=== PATIENT | male | born 1960 | race Caucasian/White ===

== ENCOUNTER 2024-06-19 15:10 | Inpatient (IN) | payer OTHER, SELFPAY ==
[2024-06-19] VITALS (9 sets, daily range): BP systolic 145–175; BP diastolic 82–121; BMI 32.3
--- NOTE | 2024-06-19 10:18 | ED.GENMED ---
ED Provider Triage
<Leno Del Angel PA-C - Last Filed: 06/19/24 10:19>
-
Patient seen by provider in Triage?: Seen in Triage
64-year-old male with mid and left-sided abdominal pain associated with nausea vomiting and diarrhea. He has a temperature of 100.6 on triage. The pain on the left side is constant. He also notes a darker colored urine.
No acute distress upon triage other than fever. Tylenol ordered for fever. Will check labs urine and order CT with IV contrast.
This was a medical screening. Patient would benefit from further evaluation
History of Present Illness
<Leno Del Angel PA-C - Last Filed: 06/19/24 10:19>
General
Chief Complaint: Abdominal Pain
Time Seen by Provider: 06/19/24 12:08
<Adeline León PA-C - Last Filed: 06/19/24 21:42>
General
Source: patient
Exam Limitations: none
Nursing documentation reviewed up to this point in time: agreed with
History of Present Illness
History of Present Illness:
64-year-old male with a past medical history of GERD, hypertension, cirrhosis, pancreatitis presents to the emergency department today with concerns of left lower quadrant abdominal pain, as well as diarrhea starting last night. Patient reports
that he woke up in the pain in the middle of the night. Patient states he has never had pain like this before. Patient denies radiation of the pain. He states that it comes and goes and describes as a stat stabbing sensation in the left side of
his abdomen. He is also had diarrhea every time he is use bathroom. Patient denies any blood in his stools, any rectal bleeding, any lightheadedness, any dizziness. Patient denies any recent antibiotic use, any recent travel outside the country.
Patient denies any history of intra-abdominal surgeries. Patient denies any nausea or vomiting. States that he developed a fever today. He denies chest pain but does note some mild associated shortness of breath as well as coughing. He also
complains of episode of burning with urination and dark-colored urine. He denies any pelvic pain or penile discharge.
Past History
<Leno Del Angel PA-C - Last Filed: 06/19/24 10:19>
Past History
ED Past Medical History: Arrthythmia, GERD, HTN, Psychiatric (alcoholism and depression, substance abuse), Other (Pancreatitis) and Other (peripheral neuropathy, BPH)
ED Past Surgical History: None
Social History
Tobacco: Former smoker ( him)
Alcohol: Former
Drug: Marijuana and Cocaine
Personal: Single
Living: with roommate
Employment: Not employed
Family History
Family History: Other (Noncontributory)
Review of Systems
<Adeline León PA-C - Last Filed: 06/19/24 21:42>
Review of Systems
All Other Systems: ROS reviewed and negative except as documented in HPI and ROS
Phy Exam
<GENARO Lozano Last Filed: 06/19/24 21:42>
Physical Exam
Physical Exam:
General: Patient is well appearing and in no acute distress; non-toxic
Skin: Warm and dry, no rashes or lesions
Head: Normocephalic, atraumatic
Eyes: Sclera non-icteric. EOMs intact.
Cardiac: Regular rate and rhythm, no murmurs
Peripheral Vascular: No lower extremity swelling or edema
Pulm: Normal respiratory effort, no wheezes, rales, rhonchi
Abdomen: Left-sided abdominal tenderness noted to palpation, no palpable abdominal masses
Neuro: CN II-XII intact, no focal neurologic deficits.
Psychiatric: Appropriate mood and affect.
Course
<Leno Del Angel PA-C - Last Filed: 06/19/24 10:19>
Orders/Labs/Results
Orders:
Orders
06/19/24 Breakfast
Clear Liquid
At Your Request: Full Participation
06/19/24 10:17
CT Abd/pelvis W Iv Cont Urgent
Comment:
Reason For Exam: abdominal pain, vomiting, diarrhea
Acetaminophen [Tylenol] 1,000 mg PO NOW STA
06/19/24 10:23
Complete Blood Count/With Diff Urgent
Comprehensive Metabolic Panel Urgent
Lipase Urgent
06/19/24 12:20
0.9% Sodium Chloride 1000 ml [Nss] 1,000 ml IV BOLUS
Morphine Sulfate 2 mg IV NOW STA
06/19/24 12:41
CR Chest - 2 Views Urgent
Comment:
Reason For Exam: coughing, shortness of breath
06/19/24 12:45
Urinalysis Reflex To Culture Urgent
Date Specimen was Collected: 06/19/24
Time Specimen was Collected: 10:20
Urine Microscopic Reflex Cult Urgent
Urine Culture Urgent
JOHN Source: U
Specimen Description:
Date Specimen was Collected: 06/19/24
Time Specimen was Collected: 10:20
06/19/24 13:24
Ketorolac [Toradol] 15 mg IV NOW STA
06/19/24 13:32
CefTRIAXone [Rocephin] 1,000 mg IV NOW STA
Morphine Sulfate 2 mg IV NOW STA
06/19/24 14:33
Admit/Transfer Patient As Directed
Co-Sign Provider:
Level of Care: Inpatient admission
Assign to:: Telemetry
Physician / Group: Toribio
Diagnosis: Sepsis, UTI
Reason for Telemetry: Arrhythmia
Date to Stop Telemetry: 06/22/24
Time to Stop Telemetry: 11:00
Reason for Hospitalization: IV abx
Expected length of stay greater than two midnights?: Yes
ELOS- Estimated Length of Stay in days: 3
I certify the patient meets the requirements for IP care: Yes
PRN Pain Medication Management As Directed
May give lesser potent ordered pain med per pt: Yes
preference::
Protocol:: Medication orders for pain may be administered in a
manner that supports deferring to patient preference
when the pt is:
- Requesting an ordered lesser potent pain medication.
Least to most potent pain medications are defined
as: acetaminophen < NSAID < tramadol < opioids
(morphine, oxycodone, hydromorphone).
- Requesting a lesser dose of the same medication IF
ORDERED.
- Requesting a less intrusive route of administration
if both routes are prescribed by the provider (PO <
IV).
06/19/24 14:37
Code Status As Directed
Resuscitation Status: Full Code
06/19/24 14:39
Blood Culture Urgent
JOHN Source: Blood/Venous
Specimen Description:
06/19/24 15:04
Norovirus by PCR Urgent
JOHN Source: Feces/Stool
Specimen Description:
Date Specimen was Collected: 06/19/24
Time Specimen was Collected: 20:14
06/19/24 15:15
0.9% Sodium Chloride 1000 ml [Nss] 1,000 ml IV 100 mls/hr
06/19/24 15:51
Blood Culture Urgent
JOHN Source: Blood/Venous
Specimen Description:
06/19/24 18:16
Acetaminophen [Tylenol] 650 mg PO Q4HPRN PRN
Enoxaparin Sodium [Lovenox] 40 mg SC QPM
HydrALAZINE [Apresoline] 10 mg IV Q6HPRN PRN
Morphine Sulfate 2 mg IV Q4HPRN PRN
Ondansetron Injectable [Zofran] 4 mg IV Q6HPRN PRN
06/19/24 18:16
Activity As Directed
Activity Level: Out of Bed-Early Mobility
With Assistance
Bladder Scan As Directed
Follow Bladder Retention/Intermittent Cath Algorithm?: Yes
PRN if no void in __ hours: 6
Frequency: Per Retention Algorithm
If Bladder Scan Result >: 400
then:: Straight cath
I&O [Intake/ Output] As Directed
Frequency: q12h
MSAS SCORE As Directed
MSAS Score 0-4: Repeat MSAS every 2 hours until 0-4 for three consecutive assessments, then every 4 hours x 48
hours.
MSAS Score 5-7: For MILD withdrawl symptoms. Repeat MSAS and RASS every 2 hours
MSAS Score 8-11: For MODERATE withdrawal symptoms. Repeat MSAS and RASS every 1 hour. Consider ICU or IMU
level of care.
MSAS Score > 11: For SEVERE withdrawal symptoms. Repeat MSAS and RASS every 1 hour. Notify provider, consider
ICU level of care.
MSAS Additional Instructions: If no improvement or no decrease in score from severe to moderate within 12
hours, consult psychiatry
MSAS Notify Provider: Notify provider if patient requires more than 10 mg of Lorazepam in eight hour period.
Straight Cath As Directed
Frequency: Per Retention Algorithm
Additional Instructions: straight cath as needed per acute urinary retention algorithm for 24 hrs
Additional Instructions: for bladder scan greater than 400 mL
Vital Signs As Directed
Frequency: Per unit guidelines
DX Deep Vein Thrombosis Video Routine
06/19/24 20:17
Stool Culture Urgent
JOHN Source: Feces/Stool
Specimen Description:
Date Specimen was Collected: 06/19/24
Time Specimen was Collected: 20:14
06/20/24 06:00
Basic Metabolic Panel IN AM
Complete Blood Count/No Diff IN AM
Magnesium IN AM
06/20/24 14:00
CefTRIAXone [Rocephin] 1,000 mg IV Q24H
06/22/24 11:00
DC Protocol for Telemetry ONCE
Abnormal Lab Results
06/19/24 06/19/24
10:23 12:45
WBC 15.0 H 10^3/uL
(4.8-10.8)
MCH 32.5 H pg
(27.0-31.0)
Abs Immat Gran (auto) 0.1 H 10^3/uL
(0-0.05)
Absolute Neuts (auto) 13.9 H 10^3/uL
(1.4-6.5)
Absolute Lymphs (auto) 0.5 L 10^3/uL
(1.2-3.4)
Neutrophils % 92.5 H %
(42.2-75.2)
Lymphocytes % 3.3 L %
(20.5-51.1)
BUN 28 H mg/dl
(9-20)
Glucose 142 H mg/dl
(70-99)
Total Bilirubin 1.4 H mg/dl
(0.2-1.3)
Urine Ketones 1+ A
(Negative)
Ur Occult Blood Reflex 2+ A
(Negative)
Urine Nitrite (Reflex) Positive A
(Negative)
Leukocyte Esterase Rfl 2+ A
(Negative)
Urine WBC (Reflex) >100 A /HPF
(0-5)
Urine Bacteria (Reflex) Many A
(Negative)
06/19/24 10:23
06/19/24 10:23
Vital Signs
Initial and Last Documented VS:
Initial Vital Signs
Temp Pulse Resp BP Pulse Ox
100.6 F H 131 18 175/121 97
06/19/24 10:16 06/19/24 10:16 06/19/24 10:16 06/19/24 10:16 06/19/24 10:16
Last Documented Vital Signs
Temp Pulse Resp BP Pulse Ox
99.5 F 128 20 162/82 95
06/19/24 19:48 06/19/24 19:48 06/19/24 19:48 06/19/24 20:45 06/19/24 19:48
<Adeline León PA-C - Last Filed: 06/19/24 21:42>
Orders/Labs/Results
Orders:
Orders
06/19/24 Breakfast
Clear Liquid
At Your Request: Full Participation
06/19/24 10:17
CT Abd/pelvis W Iv Cont Urgent
Comment:
Reason For Exam: abdominal pain, vomiting, diarrhea
Acetaminophen [Tylenol] 1,000 mg PO NOW STA
06/19/24 10:23
Complete Blood Count/With Diff Urgent
Comprehensive Metabolic Panel Urgent
Lipase Urgent
06/19/24 12:20
0.9% Sodium Chloride 1000 ml [Nss] 1,000 ml IV BOLUS
Morphine Sulfate 2 mg IV NOW STA
06/19/24 12:41
CR Chest - 2 Views Urgent
Comment:
Reason For Exam: coughing, shortness of breath
06/19/24 12:45
Urinalysis Reflex To Culture Urgent
Date Specimen was Collected: 06/19/24
Time Specimen was Collected: 10:20
Urine Microscopic Reflex Cult Urgent
Urine Culture Urgent
JOHN Source: U
Specimen Description:
Date Specimen was Collected: 06/19/24
Time Specimen was Collected: 10:20
06/19/24 13:24
Ketorolac [Toradol] 15 mg IV NOW STA
06/19/24 13:32
CefTRIAXone [Rocephin] 1,000 mg IV NOW STA
Morphine Sulfate 2 mg IV NOW STA
06/19/24 14:33
Admit/Transfer Patient As Directed
Co-Sign Provider:
Level of Care: Inpatient admission
Assign to:: Telemetry
Physician / Group: Toribio
Diagnosis: Sepsis, UTI
Reason for Telemetry: Arrhythmia
Date to Stop Telemetry: 06/22/24
Time to Stop Telemetry: 11:00
Reason for Hospitalization: IV abx
Expected length of stay greater than two midnights?: Yes
ELOS- Estimated Length of Stay in days: 3
I certify the patient meets the requirements for IP care: Yes
PRN Pain Medication Management As Directed
May give lesser potent ordered pain med per pt: Yes
preference::
Protocol:: Medication orders for pain may be administered in a
manner that supports deferring to patient preference
when the pt is:
- Requesting an ordered lesser potent pain medication.
Least to most potent pain medications are defined
as: acetaminophen < NSAID < tramadol < opioids
(morphine, oxycodone, hydromorphone).
- Requesting a lesser dose of the same medication IF
ORDERED.
- Requesting a less intrusive route of administration
if both routes are prescribed by the provider (PO <
IV).
06/19/24 14:37
Code Status As Directed
Resuscitation Status: Full Code
06/19/24 14:39
Blood Culture Urgent
JOHN Source: Blood/Venous
Specimen Description:
06/19/24 15:04
Norovirus by PCR Urgent
JOHN Source: Feces/Stool
Specimen Description:
Date Specimen was Collected: 06/19/24
Time Specimen was Collected: 20:14
06/19/24 15:15
0.9% Sodium Chloride 1000 ml [Nss] 1,000 ml IV 100 mls/hr
06/19/24 15:51
Blood Culture Urgent
JOHN Source: Blood/Venous
Specimen Description:
06/19/24 18:16
Acetaminophen [Tylenol] 650 mg PO Q4HPRN PRN
Enoxaparin Sodium [Lovenox] 40 mg SC QPM
HydrALAZINE [Apresoline] 10 mg IV Q6HPRN PRN
Morphine Sulfate 2 mg IV Q4HPRN PRN
Ondansetron Injectable [Zofran] 4 mg IV Q6HPRN PRN
06/19/24 18:16
Activity As Directed
Activity Level: Out of Bed-Early Mobility
With Assistance
Bladder Scan As Directed
Follow Bladder Retention/Intermittent Cath Algorithm?: Yes
PRN if no void in __ hours: 6
Frequency: Per Retention Algorithm
If Bladder Scan Result >: 400
then:: Straight cath
I&O [Intake/ Output] As Directed
Frequency: q12h
MSAS SCORE As Directed
MSAS Score 0-4: Repeat MSAS every 2 hours until 0-4 for three consecutive assessments, then every 4 hours x 48
hours.
MSAS Score 5-7: For MILD withdrawl symptoms. Repeat MSAS and RASS every 2 hours
MSAS Score 8-11: For MODERATE withdrawal symptoms. Repeat MSAS and RASS every 1 hour. Consider ICU or IMU
level of care.
MSAS Score > 11: For SEVERE withdrawal symptoms. Repeat MSAS and RASS every 1 hour. Notify provider, consider
ICU level of care.
MSAS Additional Instructions: If no improvement or no decrease in score from severe to moderate within 12
hours, consult psychiatry
MSAS Notify Provider: Notify provider if patient requires more than 10 mg of Lorazepam in eight hour period.
Straight Cath As Directed
Frequency: Per Retention Algorithm
Additional Instructions: straight cath as needed per acute urinary retention algorithm for 24 hrs
Additional Instructions: for bladder scan greater than 400 mL
Vital Signs As Directed
Frequency: Per unit guidelines
DX Deep Vein Thrombosis Video Routine
06/19/24 20:17
Stool Culture Urgent
JOHN Source: Feces/Stool
Specimen Description:
Date Specimen was Collected: 06/19/24
Time Specimen was Collected: 20:14
06/20/24 06:00
Basic Metabolic Panel IN AM
Complete Blood Count/No Diff IN AM
Magnesium IN AM
06/20/24 14:00
CefTRIAXone [Rocephin] 1,000 mg IV Q24H
06/22/24 11:00
DC Protocol for Telemetry ONCE
Abnormal Lab Results
06/19/24 06/19/24
10:23 12:45
WBC 15.0 H 10^3/uL
(4.8-10.8)
MCH 32.5 H pg
(27.0-31.0)
Abs Immat Gran (auto) 0.1 H 10^3/uL
(0-0.05)
Absolute Neuts (auto) 13.9 H 10^3/uL
(1.4-6.5)
Absolute Lymphs (auto) 0.5 L 10^3/uL
(1.2-3.4)
Neutrophils % 92.5 H %
(42.2-75.2)
Lymphocytes % 3.3 L %
(20.5-51.1)
BUN 28 H mg/dl
(9-20)
Glucose 142 H mg/dl
(70-99)
Total Bilirubin 1.4 H mg/dl
(0.2-1.3)
Urine Ketones 1+ A
(Negative)
Ur Occult Blood Reflex 2+ A
(Negative)
Urine Nitrite (Reflex) Positive A
(Negative)
Leukocyte Esterase Rfl 2+ A
(Negative)
Urine WBC (Reflex) >100 A /HPF
(0-5)
Urine Bacteria (Reflex) Many A
(Negative)
06/19/24 10:23
06/19/24 10:23
Vital Signs
Initial and Last Documented VS:
Initial Vital Signs
Temp Pulse Resp BP Pulse Ox
100.6 F H 131 18 175/121 97
06/19/24 10:16 06/19/24 10:16 06/19/24 10:16 06/19/24 10:16 06/19/24 10:16
Last Documented Vital Signs
Temp Pulse Resp BP Pulse Ox
99.5 F 128 20 162/82 95
06/19/24 19:48 06/19/24 19:48 06/19/24 19:48 06/19/24 20:45 06/19/24 19:48
Jolt;Adeline León PA-C - Last Filed: 06/19/24 21:42>
MDM/Problems Addressed
Differential Diagnosis Includes:
See below
MDM/Problems Addressed:
NUMBER AND COMPLEXITY OF PROBLEMS ADDRESSED AT THE ENCOUNTER
� Chronic conditions affecting care: BPH, GERD, hypertension
� Acute Exacerbation and/or Progression of Chronic Illness: N/A
� Differential Diagnosis includes: Differentials include diverticulitis, gastroenteritis, urinary tract infection, pyelonephritis
AMOUNT AND/OR COMPLEXITY OF DATA TO BE REVIEWED AND ANALYZED
� I performed an independent evaluation of and my interpretation is:
CT: CT scan reveals enteritis
No clear infiltrate on x-ray of the chest noted
Laboratory Studies: Leukocytosis with left shift noted
Other:
� Review of other/old records: Reviewed discharge summary from 06/15/2022, patient does have a history of urosepsis.
� Further testing considered but not performed:
RISK OF COMPLICATIONS AND/OR MORBIDITY OR MORTALITY OF PATIENT MANAGEMENT
� Social determinants of health affecting care: N/A
� Discussion with other providers: Reviewed case with my ER attending
� Escalation of care including admission/observation vs risk of discharge considered:
64-year-old male with past medical history of GERD, hypertension, hyperlipidemia presents emergency department today with concerns of burning with urination, fevers, and left-sided abdominal pain. Patient has been hospitalized here in the past for
bacteremia from UTI. On physical examination, patient appears uncomfortable, he is febrile, he is tenderness palpation is abdominal exam but his abdomen is soft, he does have leukocytosis with left shift. His urinalysis does show evidence of UTI.
In light of his symptoms and history, will admit for IV antibiotics for urinary tract infection. CT negative for any diverticulitis, does show enteritis.
<Adeline León PA-C - Last Filed: 06/19/24 21:42>
*Critical Care Note
Total Time (30-74mins, 75-104mins- exclusive of procedures): Not Applicable
ED Attending Note
<Leno Del Angel PA-C - Last Filed: 06/19/24 10:19>
-
Portions of this chart may have been created with voice recognition software.� Occasional wrong word or��sound alike� substitutions may have occurred due to the inherent limitations of voice recognition software.
Discharge Plan
Departure
Patient Disposition: Admit
Date of Disposition: 06/19/24
Time of Disposition: 13:36
Admit to: Med/Surg
Presentation/result/management discussed w/ accepting MD/DO: Hospitalist
Condition: Fair
Discharge Problem:
Urinary tract infection, Abdominal pain
Interventions
Interventions:
*Risk Screen - Suicide Last Done: 06/19/24 10:16
*General Assessment Last Done: 06/19/24 10:16
*Neglect/Abuse Screening Last Done: 06/19/24 10:16
*ED COVID-19 Vaccine History Last Done: 06/19/24 12:47
*Nursing Disposition Last Done: 06/19/24 18:16
DH-Nhjyqw-Ebmzjxktay Assessment Last Done: 06/19/24 12:47
Discharge Date and Time
Discharge Date/Time: 06/19/24 18:17
[2024-06-19] MEDS: TYLENOL 1000 MG PO ×2 (10:25→21:10)
[2024-06-19 10:32] LABS: % Basophils 0.3 % (0-2); % Eosinophils 0.1 % (0-6); % Immature Granulocytes 0.4 % (0-0.5); % Lymphocytes 3.3 % (20.5-51.1); % Monocytes 3.4 % (1.7-9.3); % Neutrophils 92.5 % (42.2-75.2); Absolute Basophils 0.1 10^3/uL (0-0.2); Absolute Immature Granulocytes 0.1 10^3/uL (0-0.05); Absolute Lymphocytes 0.5 10^3/uL (1.2-3.4); Absolute Monocytes 0.5 10^3/uL (0.1-0.6); Absolute Neutrophils 13.9 10^3/uL (1.4-6.5); Hematocrit 46.2 % (39.0-52.0); Hemoglobin 16.2 g/dL (13.0-18.0); Mean Corp Hgb Conc. 35.1 g/dL (33.0-37.0); Mean Corpuscular Hgb 32.5 pg (27.0-31.0); Mean Corpuscular Volume 92.8 fL (80.0-94.0); Mean Platelet Volume 9.2 fL (7.4-10.4); Nucleated Red Blood Cells % 0 % (-); Platelet Count 253 10^3/uL (130-400); Red Blood Cell Count 4.98 10^6/uL (4.70-6.10); Red Cell Dist. Width 12.4 % (11.5-14.5)
[2024-06-19 10:58] LABS: ALT (SGPT) 45 U/L (0-50); AST (SGOT) 52 U/L (17-59); Albumin 4.9 g/dl (3.5-5.0); Alkaline Phosphatase 65 U/L (38-126); Blood Urea Nitrogen 28 mg/dl (9-20); Calcium 9.6 mg/dl (8.4-10.2); Carbon Dioxide 26 mmol/L (22-30); Chloride 102 mmol/L (98-107); Glucose 142 mg/dl (70-99); Lipase 29 U/L (23-300); Potassium 4.7 mmol/L (3.5-5.1); Sodium 140 mmol/L (135-145); Total Bilirubin 1.4 mg/dl (0.2-1.3); Total Protein 7.9 g/dl (6.3-8.2); eGFR > 60.00
[2024-06-19] MEDS: MORPHINE SULFATE 2 MG IV ×4 (12:49→23:40)
[2024-06-19] MEDS: NSS 1000 IV ×2 (12:50→16:38)
[2024-06-19 13:07] LABS: Urine Albumin Trace (Neg - Trace); Urine Bilirubin Negative (Negative); Urine Character Very Cloudy (Clear); Urine Color Yellow; Urine Glucose Negative (Negative); Urine Ketone 1+ (Negative); Urine Leukocyte 2+ (Negative); Urine Nitrite Positive (Negative); Urine Occult Blood 2+ (Negative); Urine Urobilinogen Negative (Neg - 1+)
[2024-06-19 14:07] LABS: Urine Mucus Many
[2024-06-19 14:08] LABS: Urine Squamous Cell >30 /LPF (Few)
[2024-06-19 14:10] LABS: Urine Amorphous Seen; Urine Bacteria Many (Negative); Urine Red Blood Cell 0-2 /HPF (0-2); Urine White Cell >100 /HPF (0-5)
[2024-06-19] MEDS: TORADOL 15 MG IV (14:10)
[2024-06-19] MEDS: ROCEPHIN 1000 MG IV (14:10)
--- NOTE | 2024-06-19 14:49 | HPS.HSE ---
Family Physician
-
Family Physician: Kristian Clifford
Chief Complaint
-
Abdominal Pain
History of Present Illness
Patient is a 64 y/o male past medical history of hypertension and BPH who presents with dysuria and abdominal pain. Patient reports he started with dysuria about two days ago. Last night after he dinner he started feel very unwell. He developed
left sided abdominal pain, nausea and diarrhea. He reports he spent the whole night in the shower running hot water on his abdomen, or using a hot water bottle. He noted low grade fever 99F this morning. Due to significant symptoms he presented to
the emergency department for evaluation.
Medical History
Past Medical History
Past Medical History: Reports Other
Additional Past Medical History:
Essential Hypertension
BPH
Alcohol Use Disorder
Past Surgical History: Reports None
Social History
Tobacco: Former Smoker (Quit about 10 years)
Alcohol: Other (Patient is a former alcoholic. Currently drinking a few beers a few times a week. )
Family History
Family History: Not pertinent
Allergies / Home Medications
Allergies reflects when Allergies were last updated in [facility].
Home Medications with original date entered in [facility]
Allergy/Medication List:
Allergies
Allergy/AdvReac Type Severity Reaction Status Date / Time
No Known Allergies Allergy Verified 06/19/24 10:16
Home Medications
ibuprofen 200 mg tablet 400 mg PO Q6HPRN PRN MILD PAIN 06/14/22
therapeutic multivitamin 1 tab PO DAILY 06/19/24
Review of Systems
-
A 12 point ROS was completed and negative except as noted: Yes
Constitutional: Reports Fever
Respiratory: Denies Cough or Trouble Breathing
Cardiac: Denies Chest Pain or Palpitations
Abdomen/GI: Reports Abdominal Pain, Nausea and Diarrhea
: Reports Dysuria and Dark Urine
Physical Exam
Vital Signs
Vital Signs
Temp Pulse Resp BP Pulse Ox
100.6 F H 128 20 175/109 94
06/19/24 10:16 06/19/24 14:45 06/19/24 14:00 06/19/24 13:00 06/19/24 14:45
Physical Exam
General: Comfortable and Conversant
HEENT: Anicteric and Moist mucous membranes
Respiratory: Clear and Non Labored Respirations
Cardiac: S1/S2, Regular Rhythm and Tachycardia
GI: Soft and Tender (Mild tenderness on the left without rebound or guarding)
Rectal: Deferred by Provider
Musculoskeletal: No Clubbing, No Cyanosis and No Edema
Skin: Warm and Dry
Neuro: Awake, Alert, Oriented and Nonfocal/grossly intact
Psych: Calm
Laboratory Results
-
06/19/24 10:23
06/19/24 10:23
Laboratory Results
Total Bilirubin 1.4 mg/dl (0.2-1.3) H 06/19/24 10:23
AST 52 U/L (17-59) 06/19/24 10:23
ALT 45 U/L (0-50) 06/19/24 10:23
Alkaline Phosphatase 65 U/L (38-126) 06/19/24 10:23
Lipase 29 U/L (23-300) 06/19/24 10:23
Data Reviewed
-
CT Scan: Report Reviewed by me
Lab Data: Labs Reviewed by me
Impression/Plan
-
Sepsis secondary Urinary Tract Infection +/- Enteritis
-Check blood culture due to prior history of bacteremia in setting of UTI
-Await urine culture
-Continue ceftriaxone
-Allow clear liquids
Uncontrolled Hypertension
-Patient previously on amlodipine which he stopped due to lower extremity edema
-Patient had urgent care visit on 06/10/24 with documented BP 126/84
-Add hydralazine prn
-Monitor BP
DVT Proph: Lovenox
Code Status: Full Code
--- NOTE | 2024-06-19 15:21 | W.PN.UPDATE ---
Update Note
Progress Note Update
This is an addendum to the H&P written by Carrie Driscoll.� Patient seen examined and independently with PA.
64-year-old male past medical history of former alcoholic, prior pancreatitis, GERD, hypertension, E. coli bacteremia secondary to UTI, presenting for dysuria, nausea vomiting and diarrhea for the past few days.� Also with fever.
Urinalysis indicative of infection.� CT abdomen pelvis shows enteritis.� Patient clinically septic secondary to UTI/viral enteritis.
Check blood cultures.� Urine culture pending.� IV fluids.� Ceftriaxone.� Check stool culture, norovirus.� Clear liquid diet.
Monitor for alcohol withdrawal.
Blood pressure elevated due to discontinuation of amlodipine which given swelling.� As needed hydralazine for now.
--- NOTE | 2024-06-19 18:30 | PTCARENOTE ---
Received patient from ED, walked from stretcher to bed with standby assist. MSAS ordered and scored 3 for HR and feelings of nausea. Oriented to room and use of call quiles. AAOX3 able to make needs known. Placed on tele #[id number] Sinus tach.
[2024-06-19] MEDS: LOVENOX SC (18:41)
[2024-06-19] MEDS: ZOFRAN 4 MG IV (23:49)
[2024-06-20] VITALS (8 sets, daily range): BP systolic 139–171; BP diastolic 72–106
[2024-06-20] MEDS: NSS 1000 IV ×3 (02:14→21:36)
[2024-06-20] MEDS: TYLENOL 650 MG PO ×3 (04:52→18:20)
[2024-06-20 06:31] LABS: Hematocrit 40.7 % (39.0-52.0); Hemoglobin 13.7 g/dL (13.0-18.0); Mean Corp Hgb Conc. 33.7 g/dL (33.0-37.0); Mean Corpuscular Hgb 32.2 pg (27.0-31.0); Mean Corpuscular Volume 95.8 fL (80.0-94.0); Mean Platelet Volume 9.8 fL (7.4-10.4); Platelet Count 207 10^3/uL (130-400); Red Blood Cell Count 4.25 10^6/uL (4.70-6.10)
--- NOTE | 2024-06-20 07:03 | W.PN.HOSP.TC ---
Today's Communication/Plan
-
Await final results of urine culture
Diarrhea and abdominal pain improved, continue IV fluids, advance diet as tolerated
Assessment / Plan
Assessment / Plan
Physical Exam
General: Comfortable and Conversant
HEENT: Normocephalic. Moist mucous membranes
Respiratory: Clear to Auscultation Bilaterally
Cardiac: S1/S2, Regular Rate and Rhythm
GI: Soft and Tender (Mild tenderness on the left without rebound or guarding). No CVA tenderness on either the left or the right side.
Musculoskeletal: No Cyanosis and No Edema
Skin: Warm and Dry
Neuro: Awake, Alert, Oriented and Nonfocal/grossly intact
Psych: Calm
Assessment/Plan
64-year-old male past medical history of former alcoholic, prior pancreatitis, GERD, hypertension, E. coli bacteremia secondary to UTI, presenting for dysuria, nausea vomiting and diarrhea for the past few days. Also with fever.
Urinalysis indicative of infection. CT abdomen pelvis showed enteritis. Patient clinically septic secondary to UTI/viral enteritis.
Check blood cultures. Urine culture pending. IV fluids. Ceftriaxone. Check stool culture, norovirus. Clear liquid diet.
Monitor for alcohol withdrawal.
Blood pressure elevated due to discontinuation of amlodipine which given swelling. As needed hydralazine for now.
Sepsis secondary Urinary Tract Infection +/- Enteritis
-Check blood culture due to prior history of bacteremia in setting of UTI
-Urine culture positive for gram negative bacilli
-Continue Ceftriaxone
-Advance Diet as Tolerated
History of H. Pylori
Abdominal Pain and Watery Diarrhea -- Resolved as of this morning
Recent Diarrhea
Enteritis on CT Imaging, suspected secondary to Norovirus
Norovirus Positive
-Patient reported this morning that his abdominal pain and diarrhea have improved
Uncontrolled Hypertension
-Patient previously on amlodipine which he stopped due to lower extremity edema
-Patient had urgent care visit on 06/10/24 with documented BP 126/84
-Add Losartan and monitor blood pressure
-Add hydralazine prn
-Monitor BP
History of BPH, has BPH symptoms
-Restart Flomax?
-Bladder scans
DVT Prophylaxis: Lovenox
Code Status: Full Code
Anticipated Discharge: 24 - 48 hours
Subjective/Interval History
-
Date of Service: June 20, 2024
Patient was seen and examined. He reported his abdominal has improved, dysuria is still there.
Objective Data
-
Labs:
Laboratory Results
06/20/24
05:24
WBC 12.0 H
Hgb 13.7
Hct 40.7
Plt Count 207
Sodium Pending
Potassium Pending
Chloride Pending
Carbon Dioxide Pending
BUN Pending
Creatinine Pending
Glucose Pending
Calcium Pending
Vital Signs:
Vital Signs
Temp Pulse Resp BP Pulse Ox
98.8 F 96 20 158/84 94
06/20/24 03:58 06/20/24 03:58 06/20/24 03:58 06/20/24 04:01 06/20/24 03:58
[2024-06-20 07:04] LABS: Blood Urea Nitrogen 22 mg/dl (9-20); Calcium 8.4 mg/dl (8.4-10.2); Carbon Dioxide 24 mmol/L (22-30); Chloride 103 mmol/L (98-107); Estimated Creatinine Clearance 120 ml/min; Glucose 126 mg/dl (70-99); Magnesium 1.9 mg/dl (1.6-2.3); Potassium 3.5 mmol/L (3.5-5.1); Sodium 137 mmol/L (135-145); eGFR > 60.00
--- NOTE | 2024-06-20 11:33 | CM ---
Reviewed the chart notes and spoke with the patient at the bedside. The patient resides with his significant other in a third floor apartment with three flights of stair to apartment. The patient reports no DME/VN/SNF in the past. The patient
confirmed his pharmacy of choice is the [facility]. CM continues to be available to patient/family and is monitoring medical plan for needs at discharge.
Plan: Discharge to home when medically stable. No anticipated needs identified at this time.
[2024-06-20] MEDS: ROCEPHIN 1000 MG IV (13:42)
[2024-06-20] MEDS: STERILE WATER FOR INJECTION 10 ML IV (13:42)
[2024-06-20] MEDS: KCL 20 MEQ PO (16:07)
[2024-06-20] MEDS: COZAAR 50 MG PO (16:07)
[2024-06-20] MEDS: LOVENOX 40 MG SC (18:14)
[2024-06-20] MEDS: APRESOLINE 10 MG IV (22:55)
[2024-06-21] VITALS (7 sets, daily range): BP systolic 128–176; BP diastolic 72–105
[2024-06-21] MEDS: NSS IV ×2 (08:24→17:06)
[2024-06-21] MEDS: COZAAR 50 MG PO (08:25)
[2024-06-21] MEDS: TYLENOL 650 MG PO (08:36)
[2024-06-21 09:11] LABS: % Basophils 0.7 % (0-2); % Immature Granulocytes 0.3 % (0-0.5); % Lymphocytes 21.1 % (20.5-51.1); % Monocytes 9.2 % (1.7-9.3); % Neutrophils 65.7 % (42.2-75.2); Absolute Basophils 0.1 10^3/uL (0-0.2); Absolute Eosinophils 0.2 10^3/uL (0-0.7); Absolute Lymphocytes 1.5 10^3/uL (1.2-3.4); Absolute Monocytes 0.7 10^3/uL (0.1-0.6); Absolute Neutrophils 4.8 10^3/uL (1.4-6.5); Hematocrit 43.4 % (39.0-52.0); Hemoglobin 14.9 g/dL (13.0-18.0); Mean Corp Hgb Conc. 34.3 g/dL (33.0-37.0); Mean Corpuscular Hgb 32.7 pg (27.0-31.0); Mean Corpuscular Volume 95.2 fL (80.0-94.0); Mean Platelet Volume 9.6 fL (7.4-10.4); Nucleated Red Blood Cells % 0 % (-); Platelet Count 212 10^3/uL (130-400); Red Blood Cell Count 4.56 10^6/uL (4.70-6.10); Red Cell Dist. Width 12.8 % (11.5-14.5); White Blood Cell Count 7.3 10^3/uL (4.8-10.8)
[2024-06-21 09:19] LABS: Blood Urea Nitrogen 10 mg/dl (9-20); Carbon Dioxide 30 mmol/L (22-30); Chloride 101 mmol/L (98-107); Estimated Creatinine Clearance 120 ml/min; Glucose 124 mg/dl (70-99); Potassium 3.6 mmol/L (3.5-5.1); Sodium 139 mmol/L (135-145); eGFR > 60.00
--- NOTE | 2024-06-21 09:58 | W.PN.HOSP.TC ---
Today's Communication/Plan
-
Flomax for urinary retention, reported history of BPH (and BPH symptoms)
Continue bladder scans
Start Amlodipine low dose
Assessment / Plan
Assessment / Plan
Physical Exam
General: Comfortable and Conversant
HEENT: Normocephalic. Moist mucous membranes
Respiratory: Clear to Auscultation Bilaterally
Cardiac: S1/S2, Regular Rate and Rhythm
GI: Soft and Nontender. Positive bowel sounds. No CVA tenderness on either the left or the right side.
Musculoskeletal: No Cyanosis and No Edema
Skin: Warm and Dry
Neuro: Awake, Alert, Oriented and Nonfocal/grossly intact
Psych: Calm
Assessment/Plan
64-year-old male past medical history of former alcoholic, prior pancreatitis, GERD, hypertension, E. coli bacteremia secondary to UTI, presenting for dysuria, nausea vomiting and diarrhea for the past few days. Also with fever.
Urinalysis indicative of infection. CT abdomen pelvis showed enteritis. Patient clinically septic secondary to UTI/viral enteritis.
Monitor for alcohol withdrawal.
Blood pressure elevated due to discontinuation of amlodipine which given swelling. As needed hydralazine for now.
Sepsis secondary Urinary Tract Infection +/- Enteritis
-Checked blood culture due to prior history of bacteremia in setting of UTI: no growth to date
-Urine culture positive for Citrobacter koseri
-Continue Ceftriaxone, but on discharge, will switch to Cefpodoxime 200 mg orally twice daily for 7 to 10 days
-Advance Diet as Tolerated
History of H. Pylori
Abdominal Pain and Watery Diarrhea -- RESOLVED
Recent Diarrhea - RESOLVED
Enteritis on CT Imaging, suspected secondary to Norovirus
Norovirus Positive
-Supportive care
-Follow-up with PCP and gastroenterology
Uncontrolled Hypertension
-Patient previously on amlodipine 10 mg which he stopped due to lower extremity edema
-Patient has been having quite high blood pressures here
-Losartan was added as a new blood pressure medication
-Patient says when he was on the Amlodipine 2.5 mg daily dose, he did not have lower extremity swelling so will restart that, patient is okay with this -- start Amlodipine 2.5 daily
-Low sodium diet
-Hydralazine prn while inpatient
-Monitor BP
History of BPH, has BPH symptoms
-Per patient's nurse, bladder scans showed post void residual >200 cc today
-Start Flomax
-Continue monitor bladder scans and post-void residuals
Alcohol Use Disorder
-MSAS's have been 0 to 1 in the past 24 hours
-Continue to monitor for alcohol withdrawal
-Will need to stop drinking
Chronic Shortness of Breath
-Has been having this for more than a year, per him
-Patient was told someone did PFTs or peak flow study and told him he has borderline COPD, he does report former smoking
-Patient stated he does not have a personal or family history of heart attack or heart disease
-No new chest pain or shortness of breath right now
DVT Prophylaxis: Lovenox
Code Status: Full Code
Anticipated Discharge: Within 24 hours
Subjective/Interval History
-
Date of Service: June 21, 2024
Patient was seen and examined. He denied any new symptoms or complaints, he reported that his burning sensation with urination is gone.
Objective Data
-
Labs:
Laboratory Results
06/21/24
08:45
WBC 7.3
Hgb 14.9
Hct 43.4
Plt Count 212
Sodium 139
Potassium 3.6
Chloride 101
Carbon Dioxide 30
BUN 10
Creatinine 0.8
Glucose 124 H
Calcium 9.0
Vital Signs:
Vital Signs
Temp Pulse Resp BP Pulse Ox
98.3 F 85 18 166/105 96
06/21/24 07:23 06/21/24 08:25 06/21/24 07:23 06/21/24 08:25 06/21/24 07:23
I&O
06/20/24 06/21/24 06/22/24
06:59 06:59 06:59
Intake Total 1560 / 1560
Output Total 3850 / 3850
Balance -2290 / -2290
--- NOTE | 2024-06-21 10:22 | CM ---
Patient seen at bedside
IMM explained & signed. In chart.
No needs
PLAN: Home, no needs
will drive self home
[2024-06-21] MEDS: KCL 40 MEQ PO (10:34)
[2024-06-21] MEDS: ZOFRAN 4 MG IV (14:21)
[2024-06-21] MEDS: NORVASC 2.5 MG PO (14:21)
[2024-06-21] MEDS: ROCEPHIN 1000 MG IV (14:22)
[2024-06-21] MEDS: STERILE WATER FOR INJECTION 10 ML IV (14:22)
[2024-06-21] MEDS: FLOMAX 0.4 MG PO (14:23)
[2024-06-21] MEDS: LOVENOX 40 MG SC (17:08)
[2024-06-21] MEDS: MELATONIN 3 MG PO (21:51)
[2024-06-22 03:12] VITALS: BP 167/98
--- NOTE | 2024-06-22 07:20 | W.PN.HOSP.TC ---
Today's Communication/Plan
-
Discharge today
Assessment / Plan
Assessment / Plan
Physical Exam
General: Comfortable and Conversant
HEENT: Normocephalic. Moist mucous membranes
Respiratory: Clear to Auscultation Bilaterally
Cardiac: S1/S2, Regular Rate and Rhythm
GI: Soft and Nontender. Positive bowel sounds. No CVA tenderness on either the left or the right side.
Musculoskeletal: No Cyanosis and No Edema
Skin: Warm and Dry
Neuro: Awake, Alert, Oriented and Nonfocal/grossly intact
Psych: Calm
Assessment/Plan
64-year-old male past medical history of former alcoholic, prior pancreatitis, GERD, hypertension, E. coli bacteremia secondary to UTI, presenting for dysuria, nausea vomiting and diarrhea for the past few days. Also with fever.
Urinalysis indicative of infection. CT abdomen pelvis showed enteritis. Patient clinically septic secondary to UTI/viral enteritis.
Monitor for alcohol withdrawal.
Blood pressure elevated due to discontinuation of amlodipine which given swelling. As needed hydralazine for now.
Sepsis secondary Urinary Tract Infection +/- Enteritis
Leukocytosis - RESOLVED
-Checked blood culture due to prior history of bacteremia in setting of UTI: no growth to date
-Urine culture positive for Citrobacter koseri
-Continue Ceftriaxone, but on discharge, will switch to Cefpodoxime 200 mg orally twice daily for 9 days
-Advance Diet as Tolerated
History of H. Pylori
Abdominal Pain and Watery Diarrhea -- RESOLVED
Recent Diarrhea - RESOLVED
Enteritis on CT Imaging, suspected secondary to Norovirus
Norovirus Positive
-Supportive care
-Follow-up with PCP and gastroenterology
Uncontrolled Hypertension
-Patient previously on amlodipine 10 mg which he stopped due to lower extremity edema
-Patient has been having quite high blood pressures here
-Losartan was added as a new blood pressure medication
-Patient says when he was on the Amlodipine 2.5 mg daily dose, he did not have lower extremity swelling so will restart that, patient is okay with this -- start Amlodipine 2.5 daily
-Low sodium diet
-Hydralazine prn while inpatient
-Monitor BP
History of BPH, has BPH symptoms
-Per patient's nurse, bladder scans showed post void residual >200 cc today
-Continue newly started Flomax
-Continue monitor bladder scans and post-void residuals --> now post void residuals are okay
-Follow-up with urology outpatient
Alcohol Use Disorder
-Patient's last drink was 06/18/24 in the early afternoon
-He stated that his last hospitalization for alcohol withdrawal was 4 to 5 years ago
-He drinks a lot less alcohol now
-MSAS scores have been low in the past 24 hours
-Will need to stop drinking
Chronic Shortness of Breath
-Has been having this for more than a year, per him
-Patient was told someone did PFTs or peak flow study and told him he has borderline COPD, he does report former smoking
-Patient stated he does not have a personal or family history of heart attack or heart disease
-No new chest pain or shortness of breath right now
-Follow-up with PCP, cardiology and pulmonary outpatient
DVT Prophylaxis: Lovenox
Code Status: Full Code
More than 30 minutes spent in discharge including
Final examination of the patient
Summarizing hospital stay
Instructions for continuing care to all relevant caregivers
Preparation of discharge records, prescriptions, and referral forms
Total time spent (in minutes): 36
Anticipated Discharge: Today
Subjective/Interval History
-
Date of Service: June 22, 2024
Patient was seen and examined. He reported he had a little diarrhea in the past 24 hours or so, but now is having more formed stools. He denied dysuria and looks forward to being discharged today.
Objective Data
-
Vital Signs:
Vital Signs
Temp Pulse Resp BP Pulse Ox
98.0 F 79 18 167/98 96
06/22/24 03:12 06/22/24 03:12 06/22/24 03:12 06/22/24 03:12 06/22/24 03:12
I&O
06/21/24 06/22/24 06/23/24
06:59 06:59 06:59
Intake Total 1560 / 1560 1440 / 1440
Output Total 3850 / 3850 1425 / 1425
Balance -2290 / -2290
[2024-06-22 07:30] VITALS: BP 171/106
[2024-06-22] MEDS: FLOMAX 0.4 MG PO (08:03)
[2024-06-22] MEDS: COZAAR 50 MG PO (08:03)
[2024-06-22] MEDS: NORVASC 2.5 MG PO (08:07)
[2024-06-22 08:42] LABS: % Basophils 0.7 % (0-2); % Eosinophils 5.3 % (0-6); % Immature Granulocytes 0.4 % (0-0.5); % Lymphocytes 23.5 % (20.5-51.1); % Monocytes 8.8 % (1.7-9.3); % Neutrophils 61.3 % (42.2-75.2); Absolute Eosinophils 0.3 10^3/uL (0-0.7); Absolute Lymphocytes 1.3 10^3/uL (1.2-3.4); Absolute Monocytes 0.5 10^3/uL (0.1-0.6); Absolute Neutrophils 3.5 10^3/uL (1.4-6.5); Hematocrit 43.3 % (39.0-52.0); Hemoglobin 14.9 g/dL (13.0-18.0); Mean Corp Hgb Conc. 34.4 g/dL (33.0-37.0); Mean Corpuscular Hgb 32.7 pg (27.0-31.0); Mean Platelet Volume 9.5 fL (7.4-10.4); Nucleated Red Blood Cells % 0 % (-); Platelet Count 239 10^3/uL (130-400); Red Blood Cell Count 4.56 10^6/uL (4.70-6.10); Red Cell Dist. Width 12.7 % (11.5-14.5); White Blood Cell Count 5.7 10^3/uL (4.8-10.8)
[2024-06-22 09:04] LABS: Blood Urea Nitrogen 11 mg/dl (9-20); Carbon Dioxide 33 mmol/L (22-30); Chloride 97 mmol/L (98-107); Estimated Creatinine Clearance > 125 ml/min; Glucose 137 mg/dl (70-99); Potassium 4.4 mmol/L (3.5-5.1); Sodium 138 mmol/L (135-145); eGFR > 60.00
--- NOTE | 2024-06-22 11:47 | PTCARENOTE ---
Pts BP this AM was 171/106. Upon recheck BP was 161/100. AM BP meds administered, aware.
[2024-06-22] MEDS: TYLENOL 650 MG PO (13:42)
[2024-06-22] MEDS: ROCEPHIN 1000 MG IV (13:42)
[2024-06-22] MEDS: STERILE WATER FOR INJECTION 10 ML IV (13:43)
[2024-06-22 15:15] VITALS: BP 153/94
[2024-06-22] MEDS: LOVENOX SC (17:03)
--- NOTE | 2024-06-22 17:48 | W.DCSUMMARY ---
Discharge Summary
Discharge Data
Date of Admission: 06/19/24
Date of Discharge: 06/22/24
Total time spent discharging patient (in min): 36
-
Pending Results: No
Hospital Course
64 year old male with past medical history of former alcoholic, prior pancreatitis, GERD, hypertension, E. coli bacteremia secondary to UTI, presented with fever, dysuria, nausea vomiting and diarrhea for the few days prior to arrival. Patient had a
CT Abdomen Pelvis which showed, as per radiologist's report:
'IMPRESSION:
Small bowel loops are slightly prominent and fluid-filled raising suspicion for an infectious or inflammatory enteritis.'
Patient was started on intravenous antibiotics, and urine culture showed Citrobacter koseri. Blood cultures were obtained due to patient's prior history of bacteremia in the setting of urinary tract infection, and the blood cultures showed no
growth. Patient was later able to be switched to oral antibiotics. Patient's stool came back positive for Norovirus, but he reported his recent-onset diarrhea had improved and he was tolerating a diet well. Patient did reported symptoms suggestive
of benign prostatic hyperplasia even prior to arrival to the hospital, and was started on Flomax with subsequent improvement.
Patient's had asymptomatic high blood pressure, he reported that his outpatient primary care provider recently stopped his Amlodipine 10 mg daily due to swelling in his legs, but he said he did not have an issue or any swelling with lower dose
Amlodipine 2.5 mg daily. Patient was started on low-dose Amlodipine, Losartan and Flomax this hospitalization. He reported chronic shortness of breath for more than a year, and said he had an outpatient pulmonary test which suggested at least
borderline COPD, but he denied any shortness of breath or chest pain this hospitalization, he was agreeable to follow-up with closely outpatient with outpatient doctors regarding this.
Discharge Plan
-
Patient Disposition: Home (Routine Discharge)
Discharge Diagnosis/Procedures: Sepsis secondary Urinary Tract Infection +/- Enteritis
Leukocytosis - RESOLVED
History of H. Pylori
Abdominal Pain and Watery Diarrhea -- RESOLVED
Recent Diarrhea - RESOLVED
Enteritis on CT Imaging, suspected secondary to Norovirus
Norovirus Positive
Uncontrolled Hypertension
History of BPH, has BPH symptoms
Alcohol Use Disorder
Chronic Shortness of Breath
Condition: Good
Diet: As tolerated and Low Sodium
Activity: As tolerated
Blood Work: Check CBC, BMP and Magnesium with your primary care provider's office in 2 to 3 days
Activity Restrictions/Additional Instructions:
Please read the handout instructions on the 4 medications being sent to your pharmacy. Follow-up with your PCP in the next 3 to 4 days.
Instructions: Amlodipine, Cefpodoxime, Losartan, Tamsulosin
Referrals:
Kristian Clifford CRNP [Family Provider] - in two to three days (Hospital Follow-Up)
Jakub Bowers MD [Active] - in less than 1 week (BPH, started on Flomax in hospital, needs urology follow-up)
Brent Wilson MD [Active] - in three to four weeks (Reported history of at least borderline COPD and chronic SOB for more than a year)
Pastor Oropeza MD [Active] - in one to two weeks (Consideration for stress test given chronic SOB (reported to have possible COPD as well))
Additional Discharge Medication Instructions: Amlodipine, Cefpodoxime, Losartan and Tamsulosin are all new medications.
Ibuprofen has side effects including hypertension, ulcers, etc. so it has been stopped.
Prescriptions:
New
losartan 50 mg Tablet
50 mg PO DAILY Qty: 30 1RF
tamsulosin 0.4 mg Capsule
0.4 mg PO DAILY Qty: 30 1RF
amlodipine 2.5 mg Tablet
2.5 mg PO DAILY Qty: 30 1RF
cefpodoxime 200 mg tablet
200 mg PO Q12H 9 Days Qty: 18 0RF
Continued
therapeutic multivitamin Tablet
1 tab PO DAILY
Discontinued
ibuprofen 200 mg Tablet
400 mg PO Q6HPRN PRN (Reason: MILD PAIN)
Discharge Orders:
Discharge Patient (As Directed); Ordered 06/22/24
Ordered By: Emiliano Sheikh
Discharge Date and Time
Discharge Date/Time: 06/22/24 18:10
Print Language: ROMANIAN
== END 2024-06-22 18:10 | disposition home or self-care (01) | DRG 872 ==
LOC: 2 NORTH 15:10
PROVIDERS: Physician Assistant; Physician Assistant Medical; ADMITTING PHYSICIAN Hospitalist; ATTENDING PHYSICIAN Hospitalist; EMERGENCY PHYSICIAN Student in an Organized Health Care Education/Training Program; FAMILY PHYSICIAN Chiropractor
DX: A41.51 Sepsis due to Escherichia coli [E. coli] (principal); N39.0 Urinary tract infection, site not specified; A08.11 Acute gastroenteropathy due to Norwalk agent; I10 Essential (primary) hypertension; K74.60 Unspecified cirrhosis of liver; K21.9 Gastro-esophageal reflux disease without esophagitis; N40.1 Benign prostatic hyperplasia with lower urinary tract symptoms; R33.8 Other retention of urine; F32.A Depression, unspecified; G62.9 Polyneuropathy, unspecified; F10.20 Alcohol dependence, uncomplicated; Z87.891 Personal history of nicotine dependence
CPT/HCPCS: 71046; 74177; 80048; 80053; 81003; 81015; 83690; 83735; 85025; 85027; 87040; 87045; 87046; 87077; 87086; 87186; 87427; 87798; 96361; 96374; 96375; 96376; 99285; Q9967

== ENCOUNTER 2024-07-13 06:39 | Emergency (ER) | payer OTHER, SELFPAY ==
--- NOTE | 2024-07-13 09:24 | ED.MUSCINJ ---
HPI-Injury
General
Chief Complaint: Musculo-Skeletal Complaint
Source: patient
Exam Limitations: none
Time Seen by Provider: 07/13/24 09:24
Nursing documentation reviewed up to this point in time: agreed with
History of Present Illness-Injury
Initial Injury comments:
64-year-old male with history of neuropathy, radicular neuropathy, back pain, HTN, GERD, pancreatitis, UTI w E Coli bacteremia, anemia, former alcohol abuse/substance abuse presents stating gradually increasing pain and stiffness from right
posterior shoulder, up right side neck and now with generalized headache. Pain radiates down both arms into hands mainly in 5th fingers, he has had similar symptoms in the past but without the headache. Denies fever/chills, denies n/v/d/c. Denies CP
or SOB. Took Ibuprofen 400 mg last at midnight with no relief.
Past History
Past History
ED Past Medical History: Arrthythmia, GERD, HTN, Psychiatric (alcoholism and depression, substance abuse), Other (Pancreatitis) and Other (peripheral neuropathy, BPH)
ED Past Surgical History: None
Social History
Tobacco: Former smoker ( him)
Alcohol: Former
Drug: Marijuana
Personal: Single
Living: with roommate
Employment: Not employed
Family History
Family History: Other (Noncontributory)
Review of Systems
Review of Systems
Allergies reviewed?: Yes
All Other Systems: ROS reviewed and negative except as documented in HPI and ROS
Constitutional: Denies fever or chills
EENT: Denies sore throat
Respiratory: Denies trouble breathing
Cardiac: Denies chest pain
ABD/GI: Denies abdominal pain, nausea or vomiting
: Denies dysuria or difficulty voiding
Musculoskeletal: Reports neck pain (right side neck. ) and back pain (right upper trapezius area and shoulder); Denies edema
Phy Exam
Physical Exam
Physical Exam:
GENERAL: No acute distress. A&Ox3.
CONSTITUTIONAL: Afebrile.
EYES: clear, conjunctivae normal
ENMT: moist mucus membranes, Pharynx nl, TMs normal
RESPIRATORY: Regular respirations, nonlabored, lungs clear.
CARDIOVASCULAR: Regular rate and rhythm, no murmurs, no rubs.
GI: Soft, nontender
MUSCULOSKELETAL: Moderately limited ROM of neck. No spinal bony tenderness, mild tenderness to palpation of right upper trapezius, right neck ST, Moves with ease. Well perfused.
SKIN: Warm, dry, pink
PSYCH: Normal mood and affect. Well kept, interactive and appropriate
NEUROLOGIC: Awake, alert and oriented. No focal neurological deficits. Hand grasps equal 5/5.
Injury Course
Orders/Labs/Results
Orders:
Orders
07/13/24 09:39
CR Cervical Spine 2 or 3 Vw Urgent
Comment:
Reason For Exam: pain, inablility to move
07/13/24 09:40
Ketorolac [Toradol] 30 mg IM NOW STA
07/13/24 09:41
Dexamethasone [Decadron] 10 mg PO NOW STA
MDM/Problems Addressed
Differential Diagnosis Includes:
torticollis, DJD
MDM/Problems Addressed:
64-year-old male with history of neuropathy, radicular neuropathy, back pain, HTN, GERD, pancreatitis, UTI w E Coli bacteremia, anemia, former alcohol abuse/substance abuse presents stating gradually increasing pain and stiffness from right
posterior shoulder, up right side neck and now with generalized headache. Pain radiates down both arms into hands mainly in 5th fingers, he has had similar symptoms in the past but without the headache. Denies fever/chills, denies n/v/d/c. Denies CP
or SOB. Took Ibuprofen 400 mg last at midnight with no relief.
Pt has no infectious symptoms, is totally non toxic appearing, has hx of similar symptoms, do not suspect meningitis
C spine xray radiology report read: IMPRESSION:
Moderate multilevel degenerative changes of the cervical spine without evidence for acute fracture.
10:45 AM:
After IM Toradol and Decadron patient states he is feeling much better
He has much better range of motion of the neck at this time and very appreciative of the care
Prescription for prednisone 40 mg daily for 4 days and Flexeril sent to his pharmacy
*Critical Care Note
Total Time (30-74mins, 75-104mins- exclusive of procedures): Not Applicable
ED Attending Note
-
Portions of this chart may have been created with voice recognition software.� Occasional wrong word or��sound alike� substitutions may have occurred due to the inherent limitations of voice recognition software.
Discharge Plan
Departure
Patient Disposition: Home (Routine Discharge)
Date of Disposition: 07/13/24
Time of Disposition: 10:51
Patient with high blood pressure during this ER visit?: No
Condition: Good
Discharge Problem:
DJD (degenerative joint disease) of cervical spine, Acute neck pain, Cervical radiculopathy
Instructions: Osteoarthritis, Radiculopathy of the neck and back (including sciatica), Neck pain - ED discharge instructions
Prescriptions:
New
cyclobenzaprine 10 mg tablet
10 mg PO BID PRN (Reason: neck spasm/tightness) Qty: 14 0RF
prednisone 20 mg tablet
40 mg PO DAILY Qty: 8 0RF
No Action
therapeutic multivitamin Tablet
1 tab PO DAILY
losartan 50 mg Tablet
50 mg PO DAILY Qty: 30 1RF
tamsulosin 0.4 mg Capsule
0.4 mg PO DAILY Qty: 30 1RF
amlodipine 2.5 mg Tablet
2.5 mg PO DAILY Qty: 30 1RF
cefpodoxime 200 mg tablet
200 mg PO Q12H 9 Days Qty: 18 0RF
Referrals:
Kristian Clifford CRNP [Family Provider] - Follow up in 5-7 days
Activity Restrictions/Additional Instructions:
As we discussed, you have moderate arthritis in your neck.
I sent a prescription to your pharmacy for prednisone, a steroid to take for the inflammation, start it tomorrow as you were given a dose of steroid here today
I also sent a prescription for Flexeril, a muscle relaxant to take twice a day as needed, it can make you sleepy and slow your reflexes so do not drive or operate any machinery within 8 hours of taking it.
You may take ibuprofen 600 mg, with food, every 6 hours for pain for the next 5 days as needed
Interventions
Interventions:
*Risk Screen - Suicide Last Done: 07/13/24 06:43
*General Assessment Last Done: 07/13/24 06:43
*Neglect/Abuse Screening Last Done: 07/13/24 06:43
ED- Fall Risk Assessment Last Done: 07/13/24 10:22
*ED COVID-19 Vaccine History Last Done: 07/13/24 10:22
*Nursing Disposition Last Done: 07/13/24 11:11
ED-Musculoskeletal Assessment Last Done: 07/13/24 10:22
Discharge Date and Time
Discharge Date/Time: 07/13/24 11:11
Print Language: SRI LANKAN
[2024-07-13] MEDS: DECADRON 10 MG PO (09:48)
[2024-07-13] MEDS: TORADOL 30 MG IM (09:48)
== END 2024-07-13 11:11 | disposition home or self-care (01) ==
LOC: EMR 06:39
PROVIDERS: EMERGENCY PHYSICIAN Emergency Medicine; FAMILY PHYSICIAN Chiropractor
DX: M47.812 Spondylosis without myelopathy or radiculopathy, cervical region (principal); M54.12 Radiculopathy, cervical region; I10 Essential (primary) hypertension; K21.9 Gastro-esophageal reflux disease without esophagitis; Z87.891 Personal history of nicotine dependence
CPT/HCPCS: 96372; 99284; 72040

== ENCOUNTER 2024-07-22 22:43 | Emergency (ER) | payer OTHER, SELFPAY ==
[2024-07-22 22:45] VITALS: BP 211/136
[2024-07-22 22:59] LABS: Urine Albumin Negative (Neg - Trace); Urine Bilirubin Negative (Negative); Urine Character Clear (Clear); Urine Color Yellow; Urine Glucose Negative (Negative); Urine Ketone Negative (Negative); Urine Leukocyte Negative (Negative); Urine Nitrite Negative (Negative); Urine Occult Blood Negative (Negative); Urine Specific Gravity 1.015 (<1.030); Urine Urobilinogen Negative (Neg - 1+)
[2024-07-22 23:33] VITALS: BP 152/98
[2024-07-22 23:36] VITALS: BP 152/98
--- NOTE | 2024-07-22 23:36 | ED.GENMED ---
History of Present Illness
<Wade Garcia DO, Resident - Last Filed: 07/23/24 00:11>
General
Chief Complaint: Male Genito-Urinary Symptoms
Source: patient and records
Time Seen by Provider: 07/22/24 23:12
History of Present Illness
History of Present Illness:
64 male past medical history of back pain, neuropathy, BPH with recent initiation of Flomax presents for difficulty urinating over the last 2 days in duration. Patient reports having some bladder pain during his time in the ED. Patient reports
that he has been attempting to urinate, having sensation like he has to pee and could 'pee himself' but he is unable to void completely. Reports at home he is able to void however he does not get full relief and only a small volume of urine comes
out with each attempt. Patient had a recent admission for UTI, Klebsiella and during that time he was having symptoms of BPH and was initiated on Flomax. Patient reports being compliant with Flomax but he never followed up with his PCP. Patient
reports that he stopped all of his medications the last 2 days as he went they were causing his symptoms. Patient reports no burning, no frequency, no urinary symptoms concerning for infection. Blood pressure in emergency department 211/136,
tachycardic 110, afebrile. In emergency department was able to provide a small 100 mL sample of urine, was bladder scanned and was seen to have retention of approximately 600 mL on ultrasound. Straight Rosen catheter was placed and approximately 1
L of clear yellow urine was drained.
Past History
<Wade Garcia DO, Resident - Last Filed: 07/23/24 00:11>
Past History
ED Past Medical History: Arrthythmia, GERD, HTN, Psychiatric (alcoholism and depression, substance abuse), Other (Pancreatitis) and Other (peripheral neuropathy, BPH)
ED Past Surgical History: None
Social History
Tobacco: Former smoker ( him)
Alcohol: Former
Drug: Marijuana
Personal: Single
Living: with roommate
Employment: Not employed
Family History
Family History: Other (Noncontributory)
Review of Systems
<Wade Garcia DO, Resident - Last Filed: 07/23/24 00:11>
Review of Systems
Constitutional: Reports no symptoms; Denies fever
Respiratory: Reports no symptoms
Cardiac: Reports no symptoms
ABD/GI: Reports no symptoms
: Reports difficulty voiding; Denies dysuria, incontinence or bleeding
Musculoskeletal: Reports no symptoms
Phy Exam
<Wade Garcia DO, Resident - Last Filed: 07/23/24 00:11>
General Physical Exam
General Presentation: well appearing and no apparent distress
General Skin: warm and dry
Cardiovascular Exam
Cardiovascular Exam: regular rate/rhythm and no murmur
Pulmonary Exam
Pulmonary Exam: lungs clear, no respiratory distress, no crackles and no wheezing
Gastrointestinal Exam
Gastrointestinal Exam: non tender, soft, non distended and other (Bladder was nonpalpable, exam was performed after Rosen catheter was inserted)
Musculoskeletal Exam
Musculoskeletal Exam: edema
Course
<Wade Garcia DO, Resident - Last Filed: 07/23/24 00:11>
Orders/Labs/Results
Orders:
Orders
07/22/24 22:49
Bladder Scan- Treatment ONCE
Bladder Scan As Directed
Follow Bladder Retention/Intermittent Cath Algorithm?: No
07/22/24 22:53
Urinalysis Reflex To Culture Urgent
Date Specimen was Collected: 07/22/24
Time Specimen was Collected: 22:50
07/22/24 23:13
Lidocaine 2% [Lidocaine Uro-Jet 2%] 1 syringe .ROUTE .[facility] [facility]
07/22/24 23:35
Rosen Placement- Treatment ONCE
Reason for insertion: Acute Retention
Vital Signs
Initial and Last Documented VS:
Initial Vital Signs
Temp Pulse Resp BP Pulse Ox
97.9 F 110 22 211/136 98
07/22/24 22:45 07/22/24 22:45 07/22/24 22:45 07/22/24 22:45 07/22/24 22:45
Last Documented Vital Signs
Temp Pulse Resp BP Pulse Ox
97.9 F 96 18 152/98 95
07/22/24 22:45 07/22/24 23:36 07/22/24 23:36 07/22/24 23:36 07/22/24 23:36
<Maribel Mcwilliams DO - Last Filed: 07/23/24 00:07>
Orders/Labs/Results
Orders:
Orders
07/22/24 22:49
Bladder Scan- Treatment ONCE
Bladder Scan As Directed
Follow Bladder Retention/Intermittent Cath Algorithm?: No
07/22/24 22:53
Urinalysis Reflex To Culture Urgent
Date Specimen was Collected: 07/22/24
Time Specimen was Collected: 22:50
07/22/24 23:13
Lidocaine 2% [Lidocaine Uro-Jet 2%] 1 syringe .ROUTE .[facility]
07/22/24 23:35
Rosen Placement- Treatment ONCE
Reason for insertion: Acute Retention
Vital Signs
Initial and Last Documented VS:
Initial Vital Signs
Temp Pulse Resp BP Pulse Ox
97.9 F 110 22 211/136 98
07/22/24 22:45 07/22/24 22:45 07/22/24 22:45 07/22/24 22:45 07/22/24 22:45
Last Documented Vital Signs
Temp Pulse Resp BP Pulse Ox
97.9 F 96 18 152/98 95
07/22/24 22:45 07/22/24 23:36 07/22/24 23:36 07/22/24 23:36 07/22/24 23:36
<Wade Garcia DO, Resident - Last Filed: 07/23/24 00:11>
MDM/Problems Addressed
Differential Diagnosis Includes:
Acute urinary retention, BPH,
MDM/Problems Addressed:
64 male past medical history of BPH, recently started on Flomax presents for difficulty urinating of 2 days in duration. Patient reports having bladder pain which has been progressive over the last 2 days.
Patient had a recent admission here for Klebsiella UTI which he received IV antibiotics and he was initiated on oral Flomax at that time, patient reports he did not follow-up with his PCP or urology after discharge
Patient reports that he has been taking Flomax as prescribed, however 2 days ago he stopped all of his home medications as he wanted to see if they were the cause of his urinary retention
Patient denies any burning, no frequency or any signs of infection, does report urinary retention and feelings like he 'has to pee himself' but is unable to void completely
Presentation to the emergency department patient hypertensive 211/136, slightly tachycardic 110, afebrile, satting 98% on room air
Patient denies headache, no double vision, no blurry vision, patient has no urinary symptoms besides retention, no burning, no frequency
Heart and lungs clear on exam, abdomen benign, no rebound or guarding, bladder nonpalpable after insertion of Rosen catheter
In the emergency department patient was able to void approximate 100 mL of yellow clear urine, UA was checked and is noninfectious in nature, nitrate negative, leukocyte esterase negative.
Bladder scan was performed after patient voided, approximately 600 mL was seen on bladder scan and straight Rosen catheter was placed by nursing
On placement of Rosen catheter patient voided approximately 1 L of yellow clear urine
Patient reports relief and resolution of his pain after Rosen catheter insertion and urine drainage
Recheck blood pressure demonstrated 150/90
Likely acute urinary retention is secondary to chronic BPH, patient reports he has never been evaluated by urology for BPH
Patient reports he is out of Flomax, only has 1 pill left. Will refill Flomax prescription and discharge patient home with Rosen catheter and encourage urology and PCP follow-up, referral to on-call urologist provided on discharge
Instructions on caring for Rosen catheter provided on discharge
<Wade Garcia DO, Resident - Last Filed: 07/23/24 00:11>
*Critical Care Note
Total Time (30-74mins, 75-104mins- exclusive of procedures): Not Applicable
ED Attending Note
<Wade Garcia DO, Resident - Last Filed: 07/23/24 00:11>
-
Portions of this chart may have been created with voice recognition software.� Occasional wrong word or��sound alike� substitutions may have occurred due to the inherent limitations of voice recognition software.
<Maribel Mcwilliams DO - Last Filed: 07/23/24 00:07>
ED Attending Note
Patient seen and examined by attending physician: Yes
I performed the substantive portion of visit, reviewed & personally made and approve the management plan that is documented in note by myself or IRASEMA.: Yes
I performed a history and physical exam of patient and discussed management with resident, I reviewed resident's note and agree with documented findings and plan of care.: Yes
ED Attending Note:
64-year-old male with history of high blood pressure presenting to the emergency department for concern of urinary retention. Patient reports for the past few days has had difficulty emptying his bladder. He notes about a month ago he had a
urinary tract infection, was started on Flomax for suspected BPH. Does note that he gets up several times in the evening to urinate, and had been on Flomax about 2 years ago for suspected enlarged prostate. He stopped his medication this past week
and 2 days ago had difficulty completely emptying. Symptoms worsen prior to arrival which prompted him to come to the hospital. Denies dysuria or fever. Notes lower abdominal distention and discomfort. Vital signs are significant for high blood
pressure, which improved while in the ER.
On exam patient is resting comfortably, however had a Rosen catheter placed prior to my assessment. Patient put out more than a liter of urine. Suspected retention from underlying BPH. Urine is clear, no signs of infection. No tenderness to
abdomen on reassessment after catheter placement. Blood pressure has resolved. At this time feel that he is stable for discharge. However will put patient back on Flomax, and maintain Rosen catheter until patient can follow-up with urology for
trial of voiding. Strict return precautions communicated and patient verbalized understanding
Discharge Plan
Departure
Patient Disposition: Home (Routine Discharge)
Date of Disposition: 07/23/24
Time of Disposition: 00:04
Patient with high blood pressure during this ER visit?: Yes
Condition: Good
Discharge Problem:
Acute urinary retention
Instructions: How to Care for Your Rosen Catheter, Male, Urinary Retention (DC), BLOOD PRESSURE
Prescriptions:
New
tamsulosin [Flomax] 0.4 mg capsule
0.4 mg PO DAILY Qty: 14 0RF
Rx Instructions:
Take 1 capsule by mouth daily
No Action
therapeutic multivitamin Tablet
1 tab PO DAILY
losartan 50 mg Tablet
50 mg PO DAILY Qty: 30 1RF
tamsulosin 0.4 mg Capsule
0.4 mg PO DAILY Qty: 30 1RF
amlodipine 2.5 mg Tablet
2.5 mg PO DAILY Qty: 30 1RF
cefpodoxime 200 mg tablet
200 mg PO Q12H 9 Days Qty: 18 0RF
cyclobenzaprine 10 mg tablet
10 mg PO BID PRN (Reason: neck spasm/tightness) Qty: 14 0RF
prednisone 20 mg tablet
40 mg PO DAILY Qty: 8 0RF
Referrals:
Kristian Clifford MD [Family Provider] - Call in 1-3 days for appt
Severiano Juarez MD [Active] - Call in 1-3 days for appt
Activity Restrictions/Additional Instructions:
Please follow-up with your primary care physician, call in 1 to 3 days for an appointment. Please try to get an appointment within 1 week of discharge from ER. Please continue taking Flomax until seen by primary care physician. I sent a 2-week
prescription of Flomax to your pharmacy.
Please take 1 capsule of Flomax by mouth daily
Please follow-up with urology, referral provided for Dr. Juarez. Please call in 1 to 3 days to schedule an appointment
Please resume your chronic blood pressure medications
Please keep the Rosen catheter in place until evaluated by urology, instructions on caring for a Rosen catheter are provided
Please return to the emergency department if you notice you are unable to urinate, pain in the bladder, numbness and tingling in the lower extremities, or with any concerns
Interventions
Interventions:
*Risk Screen - Suicide Last Done: 07/22/24 22:45
*General Assessment Last Done: 07/22/24 22:45
ED- Fall Risk Assessment Last Done: 07/22/24 22:45
*ED COVID-19 Vaccine History Last Done: 07/22/24 22:45
Discharge Date and Time
Print Language: TAJIK
[2024-07-23] VITALS: BP 160/95
== END 2024-07-23 00:20 | disposition home or self-care (01) ==
LOC: EMR 22:43
PROVIDERS: EMERGENCY PHYSICIAN Student in an Organized Health Care Education/Training Program; FAMILY PHYSICIAN Family Medicine
DX: R33.9 Retention of urine, unspecified (principal); N40.1 Benign prostatic hyperplasia with lower urinary tract symptoms; K21.9 Gastro-esophageal reflux disease without esophagitis; I10 Essential (primary) hypertension; Z87.440 Personal history of urinary (tract) infections; Z87.891 Personal history of nicotine dependence
CPT/HCPCS: 99282; 51702; 81003

== ENCOUNTER 2024-08-11 07:53 | Emergency (ER) | payer OTHER, SELFPAY ==
[2024-08-11 08:01] VITALS: BP 172/86
[2024-08-11 08:35] LABS: % Basophils 0.8 % (0-2); % Eosinophils 3.6 % (0-6); % Immature Granulocytes 0.3 % (0-0.5); % Lymphocytes 27.1 % (20.5-51.1); % Monocytes 8.1 % (1.7-9.3); % Neutrophils 60.1 % (42.2-75.2); Absolute Basophils 0.1 10^3/uL (0-0.2); Absolute Eosinophils 0.3 10^3/uL (0-0.7); Absolute Monocytes 0.6 10^3/uL (0.1-0.6); Absolute Neutrophils 4.5 10^3/uL (1.4-6.5); Hematocrit 42.2 % (39.0-52.0); Hemoglobin 14.6 g/dL (13.0-18.0); Mean Corp Hgb Conc. 34.6 g/dL (33.0-37.0); Mean Corpuscular Volume 92.5 fL (80.0-94.0); Mean Platelet Volume 9.3 fL (7.4-10.4); Nucleated Red Blood Cells % 0 % (-); Platelet Count 272 10^3/uL (130-400); Red Blood Cell Count 4.56 10^6/uL (4.70-6.10); Red Cell Dist. Width 12.3 % (11.5-14.5); White Blood Cell Count 7.5 10^3/uL (4.8-10.8)
[2024-08-11 08:42] LABS: ALT (SGPT) 33 U/L (0-50); AST (SGOT) 30 U/L (17-59); Albumin 4.5 g/dl (3.5-5.0); Alkaline Phosphatase 74 U/L (38-126); Blood Urea Nitrogen 23 mg/dl (9-20); Calcium 9.6 mg/dl (8.4-10.2); Carbon Dioxide 26 mmol/L (22-30); Chloride 101 mmol/L (98-107); Glucose 128 mg/dl (70-99); Potassium 4.4 mmol/L (3.5-5.1); Sodium 135 mmol/L (135-145); Total Bilirubin 0.6 mg/dl (0.2-1.3); Total Protein 7.2 g/dl (6.3-8.2); eGFR > 60.00
[2024-08-11 09:14] LABS: Urine Albumin 1+ (Neg - Trace); Urine Bilirubin Negative (Negative); Urine Character Very Cloudy (Clear); Urine Color Yellow; Urine Glucose Negative (Negative); Urine Ketone Negative (Negative); Urine Leukocyte 2+ (Negative); Urine Nitrite Negative (Negative); Urine Occult Blood 1+ (Negative); Urine Urobilinogen Negative (Neg - 1+)
--- NOTE | 2024-08-11 09:20 | ED.GENMED ---
Addendum entered and electronically signed by Leno Del Angel PA-C 08/13/24 07:55:
Urine culture shows greater than 100,000 colony-forming units of Enterococcus and Streptococcus. Patient on Keflex. Sensitivities pending
Original Note:
History of Present Illness
General
Chief Complaint: Urinary Symptoms
Source: patient
Time Seen by Provider: 08/11/24 09:11
History of Present Illness
History of Present Illness:
64-year-old male presents to the emergency room complaining of dysuria, frequency, foul-smelling urine. Patient had been seen in the emergency room 20 days ago where he was found to have urinary retention. A Rosen catheter was placed. That
catheter remained in place until 1 week ago when he was followed up by urology. At that visit the Rosen was removed and the patient had a cystoscopy. He was found to have a enlarged prostate but no other pathology. He had a 'shot' of an
antibiotic prior to the cystoscopy. However over the past few days he has noticed the above symptoms. He denies any fever. He denies any nausea or vomiting. He has no suprapubic pain and does feel like he is fully emptying his bladder.
Past History
Past History
ED Past Medical History: Arrthythmia, GERD, HTN, Psychiatric (alcoholism and depression, substance abuse), Other (Pancreatitis) and Other (peripheral neuropathy, BPH)
ED Past Surgical History: None
Social History
Tobacco: Former smoker ( him)
Alcohol: Former
Drug: Marijuana
Personal: Single
Living: with roommate
Employment: Not employed
Family History
Family History: Other (Noncontributory)
Phy Exam
Physical Exam
Physical Exam:
General: Awake, Alert, Oriented X3. No acute distress.
Vitals: unremarkable, afebrile
Head: Atraumatic
Eyes: Pupils equal, EOMI
Throat: Airway intact, no exudates
Neck: Trachea midline
Lungs: Clear and equal b/l
Heart: Regular rate, no murmurs
Abd: Soft, Nontender, No pulsatile mass
Neuro: Nonfocal
Skin: Warm, dry, no rash
Extremities: pulses equal b/l, no edema
Course
Orders/Labs/Results
Orders:
Orders
08/11/24 08:09
Complete Blood Count/With Diff Urgent
Comprehensive Metabolic Panel Urgent
Urinalysis Reflex To Culture Urgent
Date Specimen was Collected: 08/11/24
Time Specimen was Collected: 08:05
Urine Microscopic Reflex Cult Urgent
Urine Culture Urgent
JOHN Source: U
Specimen Description:
Date Specimen was Collected: 08/11/24
Time Specimen was Collected: 08:05
08/11/24 09:11
Bladder Scan- Treatment ONCE
08/11/24 09:59
Cephalexin Monohydrate [Keflex] 500 mg PO NOW STA
Abnormal Lab Results
08/11/24
08:09
RBC 4.56 L 10^6/uL
(4.70-6.10)
MCH 32.0 H pg
(27.0-31.0)
BUN 23 H mg/dl
(9-20)
Glucose 128 H mg/dl
(70-99)
Ur Occult Blood Reflex 1+ A
(Negative)
Leukocyte Esterase Rfl 2+ A
(Negative)
Urine RBC 3-6 A /HPF
(0-2)
Urine WBC (Reflex) >100 A /HPF
(0-5)
Urine Bacteria (Reflex) Many A
(Negative)
Urine Albumin (Reflex) 1+ A
(Neg - Trace)
08/11/24 08:09
08/11/24 08:09
Vital Signs
Initial and Last Documented VS:
Initial Vital Signs
Temp Pulse Resp BP Pulse Ox
98.0 F 85 16 172/86 98
08/11/24 08:01 08/11/24 08:01 08/11/24 08:01 08/11/24 08:01 08/11/24 08:01
Last Documented Vital Signs
Temp Pulse Resp BP Pulse Ox
98.0 F 78 16 139/85 98
08/11/24 08:01 08/11/24 10:00 08/11/24 10:00 08/11/24 10:00 08/11/24 10:00
MDM/Problems Addressed
Differential Diagnosis Includes:
Urinary tract infection, dysuria after procedure
MDM/Problems Addressed:
Urinalysis consistent with urinary tract infection. Patient is otherwise stable. Will start oral antibiotics patient stable for discharge
*Pulse Oximetry
Patient hypoxic: no
*Critical Care Note
Total Time (30-74mins, 75-104mins- exclusive of procedures): Not Applicable
ED Attending Note
-
Portions of this chart may have been created with voice recognition software.� Occasional wrong word or��sound alike� substitutions may have occurred due to the inherent limitations of voice recognition software.
Discharge Plan
Departure
Patient Disposition: Home (Routine Discharge)
Date of Disposition: 08/11/24
Time of Disposition: 10:00
Patient with high blood pressure during this ER visit?: Yes
Condition: Good
Discharge Problem:
Urinary tract infection
Instructions: Urinary Tract Infection, Adult (DC), BLOOD PRESSURE
Prescriptions:
New
cephalexin 500 mg capsule
500 mg PO QID 7 Days Qty: 28 0RF
No Action
therapeutic multivitamin Tablet
1 tab PO DAILY
losartan 50 mg Tablet
50 mg PO DAILY Qty: 30 1RF
tamsulosin 0.4 mg Capsule
0.4 mg PO DAILY Qty: 30 1RF
amlodipine 2.5 mg Tablet
2.5 mg PO DAILY Qty: 30 1RF
cefpodoxime 200 mg tablet
200 mg PO Q12H 9 Days Qty: 18 0RF
cyclobenzaprine 10 mg tablet
10 mg PO BID PRN (Reason: neck spasm/tightness) Qty: 14 0RF
prednisone 20 mg tablet
40 mg PO DAILY Qty: 8 0RF
tamsulosin [Flomax] 0.4 mg capsule
0.4 mg PO DAILY Qty: 14 0RF
Rx Instructions:
Take 1 capsule by mouth daily
Referrals:
Kristian Clifford CRNP [Family Provider] -
Interventions
Interventions:
*Risk Screen - Suicide Last Done: 08/11/24 08:01
*General Assessment Last Done: 08/11/24 10:00
*Neglect/Abuse Screening Last Done: 08/11/24 08:01
*ED COVID-19 Vaccine History Last Done: 08/11/24 10:00
*Nursing Disposition Last Done: 08/11/24 10:40
ED-Male Genitourinary Assessment Last Done: 08/11/24 10:00
Discharge Date and Time
Discharge Date/Time: 08/11/24 10:44
Print Language: OCCITAN
[2024-08-11 09:39] LABS: Urine Bacteria Many (Negative); Urine Urothelial Cell 16-20 /LPF (FEW); Urine White Cell >100 /HPF (0-5)
[2024-08-11 10:00] VITALS: BP 139/85
[2024-08-11] MEDS: KEFLEX 500 MG PO (10:18)
== END 2024-08-11 10:44 | disposition home or self-care (01) ==
LOC: EMR 07:53
PROVIDERS: Emergency Medicine; EMERGENCY PHYSICIAN Emergency Medicine; FAMILY PHYSICIAN Chiropractor
DX: N39.0 Urinary tract infection, site not specified (principal); I10 Essential (primary) hypertension; K21.9 Gastro-esophageal reflux disease without esophagitis; N40.1 Benign prostatic hyperplasia with lower urinary tract symptoms; Z87.891 Personal history of nicotine dependence
CPT/HCPCS: 99283; 80053; 81003; 81015; 85025; 87077; 87086; 87186

== ENCOUNTER 2024-10-24 12:51 | Emergency (ER) | payer OTHER, SELFPAY ==
[2024-10-24 12:51] VITALS: BP 167/110
[2024-10-24 14:44] LABS: Urine Albumin 2+ (Neg - Trace); Urine Bilirubin Negative (Negative); Urine Character Cloudy (Clear); Urine Color Yellow; Urine Glucose Negative (Negative); Urine Ketone 1+ (Negative); Urine Leukocyte 3+ (Negative); Urine Nitrite Positive (Negative); Urine Occult Blood 3+ (Negative); Urine Specific Gravity 1.025 (<1.030); Urine Urobilinogen Negative (Neg - 1+)
[2024-10-24 15:08] LABS: Urine Squamous Cell 0-2 /LPF (Few)
[2024-10-24 15:10] LABS: Urine Bacteria Moderate (Negative); Urine White Cell 40-50 /HPF (0-5)
--- NOTE | 2024-10-24 15:26 | ED.GENMED ---
History of Present Illness
General
Chief Complaint: Male Genito-Urinary Symptoms
Source: patient
Exam Limitations: none
Time Seen by Provider: 10/24/24 15:08
Nursing documentation reviewed up to this point in time: agreed with
History of Present Illness
History of Present Illness:
Patient is a 64-year-old male that presents to the ER with 2 complaints. Patient reports he has had frequent UTIs recently. He was on Keflex 3-4 weeks ago and then on another antibiotic he believes was Cipro for 5 days. He stopped that 2 weeks
ago. He complains of cloudy urine again however denies any fever chills nausea vomiting back pain. In addition he complains of numbness to his right groin and pain to his right buttock area that wraps around to his hip. He reports he had sciatica
in the past however that was years ago on the left side. He denies any weakness or injury. He denies any bowel or bladder incontinence. Denies any low back pain or trauma.
Past History
Past History
ED Past Medical History: Arrthythmia, GERD, HTN, Psychiatric (alcoholism and depression, substance abuse), Other (Pancreatitis) and Other (peripheral neuropathy, BPH)
ED Past Surgical History: None
Social History
Tobacco: Former smoker ( him)
Alcohol: Former
Drug: Marijuana
Personal: Single
Living: with roommate
Employment: Not employed
Family History
Family History: Other (Noncontributory)
Review of Systems
Review of Systems
Allergies reviewed?: Yes
All Other Systems: ROS reviewed and negative except as documented in HPI and ROS
Constitutional: Reports no symptoms; Denies fever, fatigue or chills
EENT: Reports no symptoms
Respiratory: Reports no symptoms
Cardiac: Reports no symptoms
ABD/GI: Reports no symptoms; Denies abdominal pain, nausea or vomiting
: Reports other (cloudy urine )
Musculoskeletal: Reports other (right groin/buttocks pain )
Skin: Reports no symptoms
Neurological: Reports no symptoms; Denies numbness (Denies any numbness Tinngling weakness to legs b/l )
Psychiatric: Reports no symptoms
Phy Exam
General Physical Exam
General Presentation: no apparent distress
General age: appears stated age
General Skin: warm and dry
General Habitus: normal
General Mental: alert
General Hydration: appears well hydrated
Gastrointestinal Exam
Gastrointestinal Exam: non tender and soft
Neurological Exam
Neurological Exam: alert, oriented x3, no motor deficits, no sensory deficits and speech normal
Musculoskeletal Exam
Musculoskeletal Exam: full ROM and other (Negative straight leg raise bilaterally normal dorsiflexion plantarflexion bilaterally)
Skin Exam
Skin Exam: normal color and warm/dry
Psychiatric Exam
Psychiatric Exam: normal mood/affect
Course
Orders/Labs/Results
Orders:
Orders
10/24/24 14:20
Urinalysis Reflex To Culture Urgent
Date Specimen was Collected: 10/24/24
Time Specimen was Collected: 14:14
Urine Microscopic Reflex Cult Urgent
Urine Culture Urgent
JOHN Source: U
Specimen Description:
Date Specimen was Collected: 10/24/24
Time Specimen was Collected: 14:14
10/24/24 15:37
IV Insert/Care/Rem.- Treatment PRN
Dexamethasone Pf [Decadron] 10 mg PO NOW STA
10/24/24 16:03
Complete Blood Count/With Diff Urgent
Comprehensive Metabolic Panel Urgent
10/24/24 16:40
Amoxicillin [Amoxil] 500 mg PO NOW STA
10/24/24 16:44
Vital Signs- Treatment ONCE
Frequency: Once
Abnormal Lab Results
10/24/24 10/24/24
14:20 16:03
MCH 32.2 H pg
(27.0-31.0)
Absolute Monos (auto) 0.7 H 10^3/uL
(0.1-0.6)
BUN 24 H mg/dl
(9-20)
Glucose 107 H mg/dl
(70-99)
Urine Ketones 1+ A
(Negative)
Ur Occult Blood Reflex 3+ A
(Negative)
Urine Nitrite (Reflex) Positive A
(Negative)
Leukocyte Esterase Rfl 3+ A
(Negative)
Urine RBC 7-10 A /HPF
(0-2)
Urine WBC (Reflex) 40-50 A /HPF
(0-5)
Urine Bacteria (Reflex) Moderate A
(Negative)
Urine Albumin (Reflex) 2+ A
(Neg - Trace)
10/24/24 16:03
10/24/24 16:03
Vital Signs
Initial and Last Documented VS:
Initial Vital Signs
Temp Pulse Resp BP Pulse Ox
98.2 F 90 16 167/110 98
10/24/24 12:51 10/24/24 12:51 10/24/24 12:51 10/24/24 12:51 10/24/24 12:51
Last Documented Vital Signs
Temp Pulse Resp BP Pulse Ox
98.2 F 90 16 167/110 98
10/24/24 12:51 10/24/24 12:51 10/24/24 12:51 10/24/24 12:51 10/24/24 12:51
MDM/Problems Addressed
Differential Diagnosis Includes:
Not limited to sciatica, UTI
MDM/Problems Addressed:
Patient as documented is a 64-year-old male who presents for cloudy urine. Patient has had UTIs recently and has been treated however now back with similar symptoms. He denies any fever chills nausea vomiting abdominal pain back pain. He is
afebrile no acute distress. Labs are unremarkable. In addition patient has pain to the right groin and numbness to the right groin and pain to the sciatic region. This does seem like radicular pain he was given 1 dose of oral steroids here in the
ER will DC with Medrol dose I reviewed prior urine micro from previous urine micro in the system will d/ c on amox .
Discussed close outpatient follow-up family doctor for reevaluation of radicular sciatic pain along with UTI. Return precautions reviewed.
*Pulse Oximetry
Patient hypoxic: no
*Critical Care Note
Total Time (30-74mins, 75-104mins- exclusive of procedures): Not Applicable
Data Reviewed
Review of Other/Old Records Reveals: Other (urine micro )
ED Attending Note
-
Portions of this chart may have been created with voice recognition software.� Occasional wrong word or��sound alike� substitutions may have occurred due to the inherent limitations of voice recognition software.
Discharge Plan
Departure
Patient Disposition: Home (Routine Discharge)
Date of Disposition: 10/24/24
Time of Disposition: 16:43
Patient with high blood pressure during this ER visit?: Yes
Covid-19: Not Applicable
Discharge Problem:
Acute UTI, Sciatica
Instructions: Urinary tract infection in adults - ED discharge instructions, Sciatica - ED discharge instructions, BLOOD PRESSURE
Prescriptions:
New
amoxicillin 500 mg capsule
500 mg PO Q8H Qty: 30 0RF
methylprednisolone [Medrol (Musa)] 4 mg tablets,dose pack
See Rx Instructions .ROUTE .COMPLEX Qty: 21 0RF
Rx Instructions:
orally per package directions
No Action
therapeutic multivitamin Tablet
1 tab PO DAILY
losartan 50 mg Tablet
50 mg PO DAILY Qty: 30 1RF
tamsulosin 0.4 mg Capsule
0.4 mg PO DAILY Qty: 30 1RF
amlodipine 2.5 mg Tablet
2.5 mg PO DAILY Qty: 30 1RF
cefpodoxime 200 mg tablet
200 mg PO Q12H 9 Days Qty: 18 0RF
cyclobenzaprine 10 mg tablet
10 mg PO BID PRN (Reason: neck spasm/tightness) Qty: 14 0RF
prednisone 20 mg tablet
40 mg PO DAILY Qty: 8 0RF
tamsulosin [Flomax] 0.4 mg capsule
0.4 mg PO DAILY Qty: 14 0RF
Rx Instructions:
Take 1 capsule by mouth daily
cephalexin 500 mg capsule
500 mg PO QID 7 Days Qty: 28 0RF
amoxicillin 500 mg capsule
500 mg PO Q8H 7 Days Qty: 21 0RF
Referrals:
Kristian Clifford MD [Family Provider] -
Brigid Pryor DO [Active] -
Activity Restrictions/Additional Instructions:
As discussed you are prescribed an antibiotic for your urine infection take as directed. In addition a prescription for steroid Dosepak was sent to your pharmacy to take for sciatica. Please call the family doctor for reevaluation of your
symptoms. In addition you may follow-up with orthopedics for further evaluation of sciatica. Return if any worsening of symptoms including creasing pain abdominal pain nausea vomiting back pain fever chills.
Interventions
Interventions:
*Risk Screen - Suicide Last Done: 10/24/24 12:51
*General Assessment Last Done: 10/24/24 14:18
*Neglect/Abuse Screening Last Done: 10/24/24 12:51
ED-Male Genitourinary Assessment Last Done: 10/24/24 14:17
Discharge Date and Time
Print Language: HUNGARIAN
[2024-10-24 16:11] LABS: % Eosinophils 1.1 % (0-6); % Immature Granulocytes 0.3 % (0-0.5); % Lymphocytes 24.7 % (20.5-51.1); % Monocytes 7.8 % (1.7-9.3); % Neutrophils 65.1 % (42.2-75.2); Absolute Basophils 0.1 10^3/uL (0-0.2); Absolute Eosinophils 0.1 10^3/uL (0-0.7); Absolute Lymphocytes 2.3 10^3/uL (1.2-3.4); Absolute Monocytes 0.7 10^3/uL (0.1-0.6); Hematocrit 46.5 % (39.0-52.0); Hemoglobin 16.3 g/dL (13.0-18.0); Mean Corp Hgb Conc. 35.1 g/dL (33.0-37.0); Mean Corpuscular Hgb 32.2 pg (27.0-31.0); Mean Corpuscular Volume 91.9 fL (80.0-94.0); Mean Platelet Volume 9.3 fL (7.4-10.4); Nucleated Red Blood Cells % 0 % (-); Platelet Count 248 10^3/uL (130-400); Red Blood Cell Count 5.06 10^6/uL (4.70-6.10); Red Cell Dist. Width 12.8 % (11.5-14.5); White Blood Cell Count 9.2 10^3/uL (4.8-10.8)
[2024-10-24 16:32] LABS: ALT (SGPT) 36 U/L (0-50); AST (SGOT) 34 U/L (17-59); Alkaline Phosphatase 83 U/L (38-126); Blood Urea Nitrogen 24 mg/dl (9-20); Calcium 9.7 mg/dl (8.4-10.2); Carbon Dioxide 25 mmol/L (22-30); Chloride 103 mmol/L (98-107); Glucose 107 mg/dl (70-99); Potassium 4.4 mmol/L (3.5-5.1); Sodium 138 mmol/L (135-145); Total Bilirubin 0.9 mg/dl (0.2-1.3); Total Protein 7.9 g/dl (6.3-8.2); eGFR > 60.00
[2024-10-24] MEDS: DECADRON 10 MG PO (16:40)
[2024-10-24] MEDS: AMOXIL 500 MG PO (16:55)
[2024-10-24 17:10] VITALS: BP 179/114
[2024-10-24] MEDS: MOTRIN 600 MG PO (17:19)
== END 2024-10-24 17:32 | disposition home or self-care (01) ==
LOC: EMR 12:51
PROVIDERS: Nurse Practitioner; EMERGENCY PHYSICIAN Emergency Medicine; FAMILY PHYSICIAN Family Medicine
DX: M54.30 Sciatica, unspecified side (principal); K21.9 Gastro-esophageal reflux disease without esophagitis; I10 Essential (primary) hypertension; F10.20 Alcohol dependence, uncomplicated; F32.A Depression, unspecified; G62.9 Polyneuropathy, unspecified; N40.0 Benign prostatic hyperplasia without lower urinary tract symptoms; N39.0 Urinary tract infection, site not specified; Z87.440 Personal history of urinary (tract) infections; Z87.891 Personal history of nicotine dependence
CPT/HCPCS: 99283; 80053; 81003; 81015; 85025; 87077; 87086

== ENCOUNTER 2024-10-25 19:44 | Inpatient (IN) | payer OTHER, SELFPAY ==
[2024-10-25 13:58] VITALS: BP 187/106
[2024-10-25 15:15] LABS: % Basophils 0.4 % (0-2); % Eosinophils 0.1 % (0-6); % Immature Granulocytes 0.2 % (0-0.5); % Lymphocytes 9.9 % (20.5-51.1); % Monocytes 3.2 % (1.7-9.3); % Neutrophils 86.2 % (42.2-75.2); Absolute Basophils 0.1 10^3/uL (0-0.2); Absolute Lymphocytes 1.2 10^3/uL (1.2-3.4); Absolute Monocytes 0.4 10^3/uL (0.1-0.6); Absolute Neutrophils 10.7 10^3/uL (1.4-6.5); Hematocrit 45.1 % (39.0-52.0); Hemoglobin 16.1 g/dL (13.0-18.0); Mean Corp Hgb Conc. 35.7 g/dL (33.0-37.0); Mean Corpuscular Hgb 32.1 pg (27.0-31.0); Mean Platelet Volume 9.3 fL (7.4-10.4); Nucleated Red Blood Cells % 0 % (-); Platelet Count 251 10^3/uL (130-400); Red Blood Cell Count 5.01 10^6/uL (4.70-6.10); Red Cell Dist. Width 12.7 % (11.5-14.5); White Blood Cell Count 12.4 10^3/uL (4.8-10.8)
[2024-10-25 15:30] VITALS: BP 163/100
[2024-10-25 15:30] LABS: ALT (SGPT) 34 U/L (0-50); AST (SGOT) 32 U/L (17-59); Albumin 4.9 g/dl (3.5-5.0); Alkaline Phosphatase 78 U/L (38-126); Blood Urea Nitrogen 26 mg/dl (9-20); Calcium 9.6 mg/dl (8.4-10.2); Carbon Dioxide 23 mmol/L (22-30); Chloride 102 mmol/L (98-107); Glucose 133 mg/dl (70-99); Potassium 4.4 mmol/L (3.5-5.1); Sodium 134 mmol/L (135-145); Total Bilirubin 1.2 mg/dl (0.2-1.3); Total Protein 7.7 g/dl (6.3-8.2); eGFR > 60.00
[2024-10-25] MEDS: TORADOL 15 MG IV (15:34)
[2024-10-25] MEDS: MORPHINE SULFATE 4 MG IV ×2 (15:34→21:15)
--- NOTE | 2024-10-25 15:39 | ED.GENMED ---
History of Present Illness
General
Chief Complaint: Back Pain
Source: patient, records and physician (Discussed directly with patient's primary physician)
Exam Limitations: none
Time Seen by Provider: 10/25/24 14:41
Nursing documentation reviewed up to this point in time: agreed with
History of Present Illness
History of Present Illness:
64-year-old male with history as documented presents to the ER for evaluation of back pain and abnormal urinalysis. Patient was seen yesterday in the emergency room for urinary issues and back pain; it was felt that his back pain was more likely
sciatica/musculoskeletal and he was started on an oral antibiotic as well as steroids for sciatica. He was sent back to the emergency room due to resistant UTI on outpatient urine culture. In short: patient had issues with urinary retention
requiring treatment with a Rosen catheter in , saw Dr. Posey for urology. After removal had cystoscopy. Since then he has had 2 or 3 incidents of urinary tract infection during which he gets dysuria and cloudy urine. Most
recently saw his primary doctor for dysuria and cloudy urine about a week ago and was prescribed Levaquin which he took for 5 days after which he had a repeat urinalysis. Repeat urinalysis showed that he had persistent infection and culture grew
out resistant Pseudomonas--on the basis of this culture that he was sent back to the ER today. On top of his recent urinary issues, he has been having pain in his back he says for the past week or so. He reports initially it started as what he
describes as a numbness in his right groin and since then he has started to develop more of a deep aching pain in the back. He does feel that it is worse with movement. No relieving factors. He denies any trauma or injury. He denies any fever or
chills. He has not had any other symptoms aside from above.
Past History
Past History
ED Past Medical History: Arrthythmia, GERD, HTN, Psychiatric (alcoholism and depression, substance abuse), Other (Pancreatitis) and Other (peripheral neuropathy, BPH)
ED Past Surgical History: None
Social History
Tobacco: Former smoker ( him)
Alcohol: Former
Drug: Marijuana
Personal: Single
Living: with roommate
Employment: Not employed
Family History
Family History: Other (Noncontributory)
Review of Systems
Review of Systems
All Other Systems: ROS reviewed and negative except as documented in HPI and ROS
Constitutional: Denies fever or chills
Respiratory: Denies trouble breathing
Cardiac: Denies chest pain
ABD/GI: Denies abdominal pain, nausea or vomiting
: Reports dysuria, flank pain and dark urine
Musculoskeletal: Reports back pain; Denies neck pain
Neurological: Denies dizzy or headache
Phy Exam
Physical Exam
Physical Exam:
General: Awake, alert; appears uncomfortable
Head: Normocephalic, atraumatic
Eyes: Conjunctiva normal, sclera anicteric
Throat: Airway intact, handling secretions
Neck: Trachea midline, supple without meningismus
Lungs: Clear to auscultation bilaterally, no wheezing, rales, rhonchi
Heart: Regular rate and rhythm, no murmurs, gallops, or rubs
Abd: Soft, non distended, nontender
Back: No CVA tenderness, no reproducible tenderness in midline or paraspinal thoracic or lumbar spine
Neuro: Cranial nerves grossly intact, speech fluid; motor and sensory intact in the lower extremities
Skin: no rash in area of concern
Extremities: No edema in extremities, warm and well-perfused
Scores
Heart Failure Risk
Heart Failure Risk Score: Not Applicable
Heart Score for Chest Pain Patients
STEMI patient?: Not applicable
Withdrawal Assessment of Alcohol
Withdrawal Assessment Completed?: Not applicable
Course
Orders/Labs/Results
Orders:
Orders
10/25/24 14:57
CT Abd/pel Without Iv Or Oral Urgent
Comment:
Reason For Exam: right flank/groin pain
Urinalysis Reflex To Culture Urgent
10/25/24 15:07
Complete Blood Count/With Diff Urgent
Comprehensive Metabolic Panel Urgent
10/25/24 15:26
Ketorolac [Toradol] 15 mg IV NOW STA
Morphine Sulfate 4 mg IV NOW STA
10/25/24 15:50
Piperacillin/Tazo 3.375 Gram [Zosyn] 3.375 gram in 50 ml IV NOW
Abnormal Lab Results
10/25/24
15:07
WBC 12.4 H 10^3/uL
(4.8-10.8)
MCH 32.1 H pg
(27.0-31.0)
Absolute Neuts (auto) 10.7 H 10^3/uL
(1.4-6.5)
Neutrophils % 86.2 H %
(42.2-75.2)
Lymphocytes % 9.9 L %
(20.5-51.1)
Sodium 134 L mmol/L
(135-145)
BUN 26 H mg/dl
(9-20)
Glucose 133 H mg/dl
(70-99)
10/25/24 15:07
10/25/24 15:07
Vital Signs
Initial and Last Documented VS:
Initial Vital Signs
Temp Pulse Resp BP Pulse Ox
37.1 C 66 18 187/106 97
10/25/24 13:58 10/25/24 13:58 10/25/24 13:58 10/25/24 13:58 10/25/24 13:58
Last Documented Vital Signs
Temp Pulse Resp BP Pulse Ox
37.1 C 66 18 187/106 97
10/25/24 13:58 10/25/24 13:58 10/25/24 13:58 10/25/24 13:58 10/25/24 13:58
MDM/Problems Addressed
Differential Diagnosis Includes:
Patient's chief complaint is back pain: Differential would include musculoskeletal pain/sciatica, nephrolithiasis, UTI/pyelonephritis
MDM/Problems Addressed:
64-year-old male presents to the emergency room�his chief complaint today is back pain however this is occurring in the context of recently abnormal urinalysis, recent urinary symptoms, and resistant infection on outpatient culture. No clear
traumatic mechanism however he does report symptoms are worse with movement. He has had sciatica in the past but he says his symptoms today are dissimilar to previous bouts of sciatica�typically he describes radicular symptoms down the entire leg,
current symptoms are restricted to the flank and groin on the right side. See photo below for results on outpatient urine culture. I think at this point we will proceed with repeat blood work, urinalysis. Check CT of the abdomen pelvis to rule
out nephrolithiasis. Will plan to admit for IV antibiotics for resistant UTI.
Acute Exacerbation and/or Progression of Chronic Illness:
Acutely hypertensive
Acute Exacerbation and/or Progression of Chronic Illness: HTN
*Radiology
Radiology exam reviewed: radiology read reviewed
*Pulse Oximetry
Patient hypoxic: no
*Critical Care Note
Total Time (30-74mins, 75-104mins- exclusive of procedures): Not Applicable
Data Reviewed
Review of Other/Old Records Reveals: Labs, Records and Testing
Source: patient, records and physician
Patient Management
Discussion with other providers: Hospitalist (Discussed with hospitalist) and PCP (Discussed directly with his primary physician)
Escalation/DeEscalation of care consider admission/obs:
Admission indicated
Update Note
Update Note:
ED Attending Note
-
Portions of this chart may have been created with voice recognition software.� Occasional wrong word or��sound alike� substitutions may have occurred due to the inherent limitations of voice recognition software.
Discharge Plan
Departure
Discharge Problem:
Acute UTI, Flank pain
Prescriptions:
No Action
therapeutic multivitamin Tablet
1 tab PO DAILY
losartan 50 mg Tablet
50 mg PO DAILY Qty: 30 1RF
tamsulosin 0.4 mg Capsule
0.4 mg PO DAILY Qty: 30 1RF
amlodipine 2.5 mg Tablet
2.5 mg PO DAILY Qty: 30 1RF
cefpodoxime 200 mg tablet
200 mg PO Q12H 9 Days Qty: 18 0RF
cyclobenzaprine 10 mg tablet
10 mg PO BID PRN (Reason: neck spasm/tightness) Qty: 14 0RF
prednisone 20 mg tablet
40 mg PO DAILY Qty: 8 0RF
tamsulosin [Flomax] 0.4 mg capsule
0.4 mg PO DAILY Qty: 14 0RF
Rx Instructions:
Take 1 capsule by mouth daily
cephalexin 500 mg capsule
500 mg PO QID 7 Days Qty: 28 0RF
amoxicillin 500 mg capsule
500 mg PO Q8H 7 Days Qty: 21 0RF
amoxicillin 500 mg capsule
500 mg PO Q8H Qty: 30 0RF
methylprednisolone [Medrol (Musa)] 4 mg tablets,dose pack
See Rx Instructions .ROUTE .COMPLEX Qty: 21 0RF
Rx Instructions:
orally per package directions
Referrals:
Kristian Clifford MD [Family Provider] -
Interventions
Interventions:
*Risk Screen - Suicide Last Done: 10/25/24 13:58
*General Assessment Last Done: 10/25/24 13:58
*Neglect/Abuse Screening Last Done: 10/25/24 13:58
ED-Musculoskeletal Assessment Last Done: 10/25/24 14:55
Discharge Date and Time
Print Language: CHINESE
[2024-10-25 16:40] LABS: Urine Albumin 1+ (Neg - Trace); Urine Bilirubin Negative (Negative); Urine Character Slightly Cloudy (Clear); Urine Color Yellow; Urine Glucose Negative (Negative); Urine Ketone 2+ (Negative); Urine Leukocyte 3+ (Negative); Urine Nitrite Positive (Negative); Urine Occult Blood 2+ (Negative); Urine Urobilinogen Negative (Neg - 1+)
[2024-10-25] MEDS: ZOSYN 50 IV (16:46)
[2024-10-25 17:12] LABS: Urine Bacteria Moderate (Negative); Urine White Cell >100 /HPF (0-5)
[2024-10-25 17:26] VITALS: BP 152/108
--- NOTE | 2024-10-25 19:04 | HPS.HSE ---
Family Physician
-
Family Physician: Kristian Clifford
Chief Complaint
-
POS UCX and resistant bacteria
History of Present Illness
HPI
64M HX Arrhythmia, GERD, HTN, Alcoholism and depression, substance abus, Pancreatitis, peripheral neuropathy, BPH seen at ER
- for evaluation of back pain and abnormal urinalysis.
- seen at ER for yesterday in the emergency room for urinary issues and back pain
- abn UA and POX GNB from UCx as off 10/24 - started on Cefodoxime and Amoxicillin
- back pain was more likely sciatica/musculoskeletal per ER eval yesterday started steroids for sciatica.
- He was sent back to the emergency room due to resistant UTI on outpatient urine culture.
- HX urinary retention requiring treatment with a Rosen catheter in , saw Dr. Posey for urology.
- After F cath removal he had cystoscopy.
- Since then he has had 2 or 3 incidents of UTI during which he gets dysuria and cloudy urine.
- Most recently saw PCP for dysuria and cloudy urine about a week ago and was prescribed Levaquin which he took for 5 days after which he had a repeat UA
- Repeat UA showed that he had persistent infection and culture grew out resistant Pseudomonas--on the basis of this culture that he was sent back to the ER today.
- also reports back pain - started as what he describes as a numbness in his right groin and since then he has started to develop more of a deep aching pain in the back. He does feel that it is worse with movement. No relieving factors.
ROS
- He denies any trauma or injury. He denies any fever or chills. He has not had any other symptoms aside from above.
Medical History
Past Medical History
Past Medical History: Reports Other
Additional Past Medical History:
Essential Hypertension
BPH
Alcohol Use Disorder
Past Surgical History: Reports None
Social History
Tobacco: Former Smoker (Quit about 10 years)
Alcohol: Other (Patient is a former alcoholic. Currently drinking a few beers a few times a week. )
Family History
Family History: Not pertinent
Allergies / Home Medications
Allergies reflects when Allergies were last updated in [facility].
Home Medications with original date entered in [facility]
Allergy/Medication List:
Allergies
Allergy/AdvReac Type Severity Reaction Status Date / Time
No Known Allergies Allergy Verified 06/19/24 10:16
Home Medications
ibuprofen 200 mg tablet 400 mg PO Q6HPRN PRN MILD PAIN 06/14/22
therapeutic multivitamin 1 tab PO DAILY 06/19/24
Review of Systems
-
Constitutional: Reports No Symptoms
EENT: Reports No Symptoms
Respiratory: Reports No Symptoms
Cardiac: Reports No Symptoms
Abdomen/GI: Reports No Symptoms
: Reports See HPI
Musculoskeletal: Reports No Symptoms
Skin: Reports No Symptoms
Neurological: Reports No Symptoms
Endocrine: Reports No Symptoms
Hematologic/Lymphatic: Reports No Symptoms
Psych: Reports No Symptoms
Physical Exam
Vital Signs
Vital Signs
Temp Pulse Resp BP Pulse Ox
98.7 F 84 20 152/108 97
10/25/24 13:58 10/25/24 17:26 10/25/24 17:26 10/25/24 17:26 10/25/24 17:26
Physical Exam
General: Well Developed, Well Nourished and No Apparent Distress
HEENT: NormoCephalic, Moist mucous membranes and Atraumatic
Respiratory: Clear
Cardiac: S1/S2 and Regular Rhythm; No Murmur or Rub
GI: Soft, Non Tender, Non Distended and Normal Bowel Sounds; No Organomegaly
Rectal: Deferred by Provider
Musculoskeletal: No Clubbing, No Cyanosis and No Edema
Skin: No Rash
Neuro: Nonfocal/grossly intact
Laboratory Results
-
10/25/24 15:07
10/25/24 15:07
Laboratory Results
Total Bilirubin 1.2 mg/dl (0.2-1.3) 10/25/24 15:07
AST 32 U/L (17-59) 10/25/24 15:07
ALT 34 U/L (0-50) 10/25/24 15:07
Alkaline Phosphatase 78 U/L (38-126) 10/25/24 15:07
Data Reviewed
-
CT Scan: Report Reviewed by me
Medical Tests (Nuc Med, Echo, EKG etc): Report Reviewed by me
Lab Data: Labs Reviewed by me
Old Records: Reviewed
Impression/Plan
-
Selected Entries
10/25/24
13:58 10/25/24
17:26
Temp 98.7 F
Pulse 66
Blood pressure 187/106 152/108
SaO2 97
Oxygen Mode of Delivery Room air
Laboratory Tests
10/25/24 10/25/24
15:07 16:08
WBC 12.4 H
Hgb 16.1
Plt Count 251
Sodium 134 L
BUN 26 H
Creatinine 1.2
eGFR > 60.00
Urine Clarity Slightly cloudy
Urine Nitrite (Reflex) Positive A
Urine RBC 3-6 A
Urine WBC (Reflex) >100 A
Urine Bacteria (Reflex) Moderate A
10/24/24 UCX: POS GNB pending id and sensitivity
CT Abd/pel Without Iv Or Oral
- No hydronephrosis or renal calculus.
- Prostatomegaly with mild circumferential urinary bladder wall thickening, similar to prior and likely in the setting of chronic outlet obstruction. Superimposed cystitis is possible. Consider correlation with urinalysis.
- Chronic degenerative changes of the lumbar spine with grade 2 anterolisthesis of L5 on S1.
- Small fat-containing umbilical and right inguinal hernias.
Last hospitalist admission:
Date of Admission: 06/19/24 - Date of Discharge: 06/22/24
DC DXS
Sepsis secondary Urinary Tract Infection +/- Enteritis
Leukocytosis
History of H. Pylori
Abdominal Pain and Watery Diarrhea
Enteritis on CT Imaging, suspected secondary to Norovirus
Uncontrolled Hypertension
History of BPH, has BPH symptoms
Alcohol Use Disorder
Chronic Shortness of Breath
ASSESSMENT & PLAN
Pending Rx reconciliation
Resistant Pseudomonas UTI on OP urine culture.
Concern for complicated male UTI
CT suggest Prostatomegaly with mild circumferential urinary bladder wall thickening, similar to prior and likely in the setting of chronic outlet obstruction. Superimposed cystitis is possible.
No stone on CT AP
HX BPH - chr bladder outlet obstruction
- IV Ceftazidime in place of Zosyn
- IV NS
- f/u GNB pending id and sensitivity from 10/24/24 UCx
- ID consult
HX BPH, has BPH symptoms
- Flomax
- bladder scans and post-void residual
- Follow-up with urology outpatient
Uncontrolled Hypertension
Benign HTN
HX Pedal edema with amlodipine 10mg daily and stopped
- c/w Losartan
- on the Amlodipine 2.5 mg daily dose, he did not have lower extremity swelling
-Low sodium diet
- IV Hydralazine prn while inpatient
- Monitor BP
Acute LBP DDX: Lower UTI ( bladder, prstate ) vs MS orgin
Denied unilateral shooting and radiating pain to [place]
Denied new incontinence of urine and feces
- To treat UT first, if LBP still persist to consider imaging
- c/w [employer] Medrol dose pack
HX Alcohol Use Disorder
- last drink was 3 days a go , a couple of beer
- suspect low risk for ETOH WDS
- observe ETOH WDS
Chronic Shortness of Breath HX
- Former smoker
- more than a year, per him
- reports HX PFTs or peak flow study and told him he has borderline COPD
DVT Px: SQH
Full code
IP MS
[2024-10-25 20:31] VITALS: BP 193/105; BMI 30.9
[2024-10-25 20:54] LABS: Amphetamines Negative (Negative); Barbiturates Negative (Negative); Benzodiazepines Negative (Negative); Buprenorphine Negative (Negative); Cocaine Negative (Negative); Marijuana Positive (Negative); Methadone Negative (Negative); Methamphetamines Negative (Negative); Opiates Positive (Negative); Phencyclidine Negative (Negative); Tricyclic Antidepressants Negative (Negative)
[2024-10-25 21:09] LABS: Fentanyl, Urine Negative (Negative)
[2024-10-25] MEDS: THIAMINE INJECTION 200 MG IV (21:14)
[2024-10-25] MEDS: HEPARIN 5000 UNITS SC (21:15)
[2024-10-25 22:00] VITALS: BP 159/88
[2024-10-25] MEDS: FORTAZ 1000 MG IV (22:07)
[2024-10-25] MEDS: MEDROL 8 MG PO (22:08)
[2024-10-25] MEDS: STERILE WATER FOR INJECTION 10 ML IV (22:08)
[2024-10-25 22:44] LABS: GGTP 35 U/L (15-73)
--- NOTE | 2024-10-25 22:52 | PTCARENOTE ---
Pt admitted to rm 322 and walked from stretcher to bed x1. Pt aaox3 and c/o 9/10 pain in R lower back. PRN tylenol only available. CREDENTIALING ASSISTANT notified, Morphine 2mg and 4mg IV ordered (see MAR). Pt given urinal and instructed to call staff to ambulate.
Call quiles within reach and plan of care ongoing.
[2024-10-25 23:12] VITALS: BP 141/73
[2024-10-26] MEDS: MORPHINE SULFATE 2 MG IV ×2 (04:03→23:26)
[2024-10-26] MEDS: MYLICON 80 MG PO (04:25)
[2024-10-26] MEDS: STERILE WATER FOR INJECTION 10 ML IV ×2 (05:41→15:27)
[2024-10-26] MEDS: FORTAZ 1000 MG IV (05:41)
[2024-10-26 05:55] VITALS: BMI 30.8
[2024-10-26] MEDS: TORADOL 15 MG IV (06:24)
[2024-10-26] MEDS: MEDROL 8 MG PO (06:24)
[2024-10-26] MEDS: MEDROL 4 MG PO ×2 (06:25→11:42)
[2024-10-26 07:21] VITALS: BP 157/88
[2024-10-26 07:32] LABS: Hematocrit 44.3 % (39.0-52.0); Hemoglobin 15.7 g/dL (13.0-18.0); Mean Corp Hgb Conc. 35.4 g/dL (33.0-37.0); Mean Corpuscular Hgb 32.4 pg (27.0-31.0); Mean Corpuscular Volume 91.5 fL (80.0-94.0); Mean Platelet Volume 9.6 fL (7.4-10.4); Platelet Count 263 10^3/uL (130-400); Red Blood Cell Count 4.84 10^6/uL (4.70-6.10); White Blood Cell Count 12.2 10^3/uL (4.8-10.8)
[2024-10-26 08:11] LABS: Blood Urea Nitrogen 22 mg/dl (9-20); Calcium 9.4 mg/dl (8.4-10.2); Carbon Dioxide 25 mmol/L (22-30); Chloride 101 mmol/L (98-107); Estimated Creatinine Clearance 105 ml/min; Glucose 126 mg/dl (70-99); Potassium 4.3 mmol/L (3.5-5.1); Sodium 136 mmol/L (135-145); eGFR > 60.00
[2024-10-26] MEDS: NORVASC 2.5 MG PO (08:27)
[2024-10-26] MEDS: FOLVITE 1 MG PO (08:28)
[2024-10-26] MEDS: FLOMAX 0.4 MG PO (08:28)
[2024-10-26] MEDS: HEPARIN 5000 UNITS SC ×2 (08:29→19:49)
[2024-10-26] MEDS: THIAMINE INJECTION 200 MG IV ×2 (08:29→19:49)
[2024-10-26] MEDS: MORPHINE SULFATE 4 MG IV ×3 (08:30→19:49)
[2024-10-26] MEDS: COZAAR 50 MG PO (08:32)
[2024-10-26] MEDS: SENOKOT-S 1 TABLET PO (11:41)
[2024-10-26] MEDS: VALIUM 2 MG PO ×2 (11:41→18:17)
--- NOTE | 2024-10-26 12:50 | W.PN.HOSP.TC ---
Addendum entered and electronically signed by Eldon Carlos MD 10/26/24 13:04:
Pt was taken off norvasc and switched to toprol. restarted toprol 25mg daily. cont losartan.
Original Note:
Today's Communication/Plan
-
Continue with steroids, Valium and pain control
Rehab evaluation
IV antibiotics
ID input
Assessment / Plan
Assessment / Plan
Resistant Pseudomonas UTI
Concern for complicated male UTI
CT suggest Prostatomegaly with mild circumferential urinary bladder wall thickening, similar to prior and likely in the setting of chronic outlet obstruction. Superimposed cystitis is possible.
No stone on CT AP
HX BPH - chr bladder outlet obstruction
- IV Ceftazidime
- Ucx noted with resistance to po cipro. Sensitivity to ceftazidime and cefepime noted.
- May need IV abx on discharge.
- ID consult
BPH
- Flomax
- bladder scans and post-void residual
- Follow-up with urology outpatient
Uncontrolled Hypertension
Benign HTN
HX Pedal edema with amlodipine 10mg daily and stopped
- c/w Losartan
- on the Amlodipine 2.5 mg daily dose, he did not have lower extremity swelling
-Low sodium diet
- IV Hydralazine prn while inpatient
- Monitor BP
Acute lower back pain secondary to spondylolysis
Denied new incontinence of urine and feces
-Lumbar x-ray with Grade II spondylolisthesis of L5 on S1 with accompanying bilateral spondylolysis.
-Right hip x-ray negative for fracture
- c/w HOME AND FAMILY LIVING PROFESSOR Medrol dose pack, Valium, pain control PT and OT will be required
HX Alcohol Use Disorder
- last drink was 3 days a go , a couple of beer
- suspect low risk for ETOH WDS
- observe ETOH WDS
Chronic Shortness of Breath HX
- Former smoker
- more than a year, per him
- reports HX PFTs or peak flow study and told him he has borderline COPD
DVT Px: SQH
Full code
Anticipated Discharge: > 48 hours
Subjective/Interval History
-
Date of Service: October 26, 2024
states of severe back pain-R sided
Objective Data
-
Labs:
Laboratory Results
10/26/24
06:49
WBC 12.2 H
Hgb 15.7
Hct 44.3
Plt Count 263
Sodium 136
Potassium 4.3
Chloride 101
Carbon Dioxide 25
BUN 22 H
Creatinine 0.9
Glucose 126 H
Calcium 9.4
Vital Signs:
Vital Signs
Temp Pulse Resp BP Pulse Ox
97.8 F 64 18 157/88 97
10/26/24 07:21 10/26/24 07:21 10/26/24 07:21 10/26/24 07:21 10/26/24 07:21
I&O
10/25/24 10/26/24 10/27/24
06:59 06:59 06:59
Output Total 400 / 400
Balance -400 / -400
Physical Exam
-
General: Well Developed, Appears in Distress and Pain
HEENT: Normocephalic, Atraumatic and Moist Mucous Membranes
Respiratory: Clear to Auscultation
Cardiac: Regular Rhythm and S1/S2; Negative Murmur, Rub or Gallop
GI: Soft, Nontender, Nondistended and Normal Bowel Sounds; Negative Organomegaly
Rectal: Deferred by Provider
Musculoskeletal: No Clubbing, No Cyanosis, No Edema and Other (TTP to paraspinal muscle R>>L )
Skin: Negative Rash
Neuro: Awake, AO x 3 and Nonfocal/Grossly Intact
Psych: Calm
--- NOTE | 2024-10-26 14:14 | CM ---
Addendum entered by Ashley Moyer 10/26/24 15:44:
Original Note:
Patient seen at bedside
Dx: Complicated UTI w/resistent pseudomonas
ID consulted, IV antibitiotics
IA completed
CM consult completed-substance abuse counseling
Declines visit from [facility] - information given to patient
Lives in an apartment with his girlfriend, 3 flights of steps to enter apt, no elevator
PLOF: Independent
Denies DME
Denies VN/has been in alcohol rehab in past
PCP: Kristian Clifford
Pharmacy: [facility]
PLAN: home, currently no needs, continue to follow for needs
--- NOTE | 2024-10-26 15:08 | CON.ID ---
Consultation
-
Date/Time Consultation Requested: 10/25/24 22:30
Date/Time Consultation Performed: 10/25/24 15:09
Requesting Provider: Dr Johnson
Performing Provider: Dr Barnard
Reason for Consultation: complicated male UTI with Psueudomonas resistsant to some ABx
Chief Complaint / Past History
Chief Complaint
POS UCX and resistant bacteria
History of Present Illness
Mr Bassett is a 64 year old male with h/o alcohol use disorder, BPH possible substance abuse who presented here for dysuria, recurrent UTIs. He has recently had a urine culture with Pseudomonas resistant to ciprofloxacin and levofloxain. No
fevers or chills. Also with severe sciatic type pain. No pain in the flanks.
Since arrival here he has been afebrile, bp stable, wbc initially 12.4 now 12.2, hgb 5.7, plt 263, L shift was noted, na 135, cr 0.9, t bili 1.2, ast 32, alt 34, alk phos 78, UA with gross pyuria and urine culture with quionolone resistant
pseudomonas 100K, currently on ceftazidime, ID is consulted for assistance with management.
Past History
Additional Past Medical History:
Essential Hypertension
BPH
Alcohol Use Disorder
Past Surgical History: None
Allergy History:
No Known Allergies Allergy (Verified 10/25/24 13:57)
Medications Reviewed: Yes
Social History
Tobacco: Former Smoker
Alcohol: Other (Alcohol use disorder is reported)
Family History
Family History: Not Pertinent
Review of Systems
Review of Systems
General: Negative Fever or Chills
All systems: All other systems were reviewed and were negative
Vital Signs
Temp Pulse Resp BP Pulse Ox
97.8 F 64 18 157/88 97
10/26/24 07:21 10/26/24 07:21 10/26/24 07:21 10/26/24 07:21 10/26/24 07:21
Physical Exam
Physical Exam
Constitutional: No Acute Distress and Chronically Ill
Cardiovascular: Regular Rate and S1/S2; Negative Murmur or Rub
Pulmonary: Clear and Symmetric; Negative Wheezes, Rales or Rhonchi
Gastrointestinal: Soft, Non Tender, Non Distended and Normal Bowel Sounds
Genito-Urinary: Negative Suprapubic Tenderness or CVA Tenderness
Extremities: Other (quite tender around ischial tuberosity )
Skin: Warm and Dry; Negative Rash or Jaundice
Lab / Diagnostic Study Results
10/26/24 06:49
10/26/24 06:49
Abs Immat Gran (auto) 0.0 10^3/uL (0-0.05) 10/25/24 15:07
Absolute Neuts (auto) 10.7 10^3/uL (1.4-6.5) H 10/25/24 15:07
Absolute Lymphs (auto) 1.2 10^3/uL (1.2-3.4) 10/25/24 15:07
Absolute Monos (auto) 0.4 10^3/uL (0.1-0.6) 10/25/24 15:07
Absolute Basos (auto) 0.1 10^3/uL (0-0.2) 10/25/24 15:07
Immature Gran % 0.2 % (0-0.5) 10/25/24 15:07
Neutrophils % 86.2 % (42.2-75.2) H 10/25/24 15:07
Lymphocytes % 9.9 % (20.5-51.1) L 10/25/24 15:07
Monocytes % 3.2 % (1.7-9.3) 10/25/24 15:07
Eosinophils % 0.1 % (0-6) 10/25/24 15:07
Basophils % 0.4 % (0-2) 10/25/24 15:07
Ur Squamous Epith Cells 3-5 /LPF (Few) 10/25/24 16:08
Microbiology Results
Micro:
10/25/24 16:08 Urine Culture - Final
Urine Pseudomonas aeruginosa
quest results in Dr Wilkes's note reviewed
Assessment / Plan
Probable Prostatitis due to quinolone resistant Pseudomonas
- urine culture 100 K Pseudomonas
- CT with cystitis, chronic outlet obstruction, DJD
- cefepime has a higher barrier to resistance than ceftazidime
- start cefepime 2 gm IV q12
- script provided to manager case
- midline placement
- when home IV antibiotics can be set up then patient will be stable for dc from ID perspective
[2024-10-26] MEDS: MAXIPIME 2000 MG IV (15:24)
[2024-10-26] MEDS: STERILE WATER FOR INJECTION IV (15:28)
[2024-10-26] MEDS: FORTAZ IV (15:28)
[2024-10-26 15:37] VITALS: BP 154/87
[2024-10-26] MEDS: COMPAZINE 5 MG IV (23:26)
[2024-10-26 23:44] VITALS: BP 162/91
[2024-10-27] MEDS: STERILE WATER FOR INJECTION 10 ML IV ×2 (03:08→17:49)
[2024-10-27] MEDS: MAXIPIME 2000 MG IV ×2 (03:08→17:49)
[2024-10-27] MEDS: VALIUM 2 MG PO ×2 (03:08→15:11)
[2024-10-27] MEDS: MORPHINE SULFATE 4 MG IV (04:25)
[2024-10-27 06:00] VITALS: BMI 30.4
[2024-10-27] MEDS: MORPHINE SULFATE 2 MG IV ×2 (06:34→11:11)
[2024-10-27 07:30] VITALS: BP 175/100
--- NOTE | 2024-10-27 08:13 | CM ---
Received script from ID for IV Cefapime 2gm IV Q12HRS
discussed with patient - faxed script & clinicals to [facility] [phone] to check benefits
Placed script on chart.
Left message for Darcy at [facility] [phone]
PLAN: Home IV antibiotics
[2024-10-27] MEDS: TOPROL XL 25 MG PO (08:39)
[2024-10-27] MEDS: ROXICODONE 5 MG PO ×2 (08:39→17:49)
[2024-10-27] MEDS: FLOMAX 0.4 MG PO (08:39)
[2024-10-27] MEDS: PROSCAR 5 MG PO (08:39)
[2024-10-27] MEDS: TYLENOL 1000 MG PO ×3 (08:39→22:32)
[2024-10-27] MEDS: SENOKOT-S 1 TABLET PO ×2 (08:39→21:02)
[2024-10-27] MEDS: FOLVITE 1 MG PO (08:40)
[2024-10-27] MEDS: THIAMINE INJECTION 200 MG IV ×2 (08:40→21:02)
[2024-10-27] MEDS: APRESOLINE 5 MG IV (08:40)
[2024-10-27] MEDS: HEPARIN 5000 UNITS SC ×2 (08:40→20:59)
[2024-10-27] MEDS: MIRALAX 17 GRAMS PO ×2 (08:42→12:40)
[2024-10-27] MEDS: COZAAR 50 MG PO (08:44)
[2024-10-27] MEDS: MEDROL 4 MG PO ×3 (08:44→20:55)
[2024-10-27 08:48] VITALS: BP 184/100
--- NOTE | 2024-10-27 10:51 | W.PN.HOSP.TC ---
Today's Communication/Plan
-
IV antibiotic
Physical and Occupational Therapy
Pain control
monitor BP
Assessment / Plan
Assessment / Plan
Resistant Pseudomonas UTI
Concern for complicated male UTI
CT suggest Prostatomegaly with mild circumferential urinary bladder wall thickening, similar to prior and likely in the setting of chronic outlet obstruction. Superimposed cystitis is possible.
No stone on CT AP
HX BPH - chr bladder outlet obstruction
- IV Ceftazidime switched to cefepime 2 g every 12 for ID
- Ucx noted with resistance to po cipro.
- Midline pending. IV antibiotics on discharge.
- ID consult
BPH
- Flomax
- bladder scans and post-void residual
- Follow-up with urology outpatient
Uncontrolled Hypertension
Benign HTN
HX Pedal edema with amlodipine 10mg daily and stopped
- c/w Losartan and metoprolol. Blood pressure elevated as with pain. If persistently elevated may need to increase dose of losartan.
- Low sodium diet
- IV Hydralazine prn while inpatient
- Monitor BP
-Per patient he was taken off Norvasc and losartan by PMD . However patient blood pressure significantly elevated and will continue with losartan for now.
Acute lower back pain secondary to spondylolysis
Denied new incontinence of urine and feces
-Lumbar x-ray with Grade II spondylolisthesis of L5 on S1 with accompanying bilateral spondylolysis.
-Right hip x-ray negative for fracture
-c/w FISHER CRAB Medrol dose pack, Valium, Flexeril pain control PT and OT will be required
-If no improvement may need to consider MRI
HX Alcohol Use Disorder
- last drink was 3 days a go , a couple of beer
- suspect low risk for ETOH WDS
- observe ETOH WDS
Chronic Shortness of Breath HX
- Former smoker
- more than a year, per him
- reports HX PFTs or peak flow study and told him he has borderline COPD
DVT Px: SQH
Full code
Anticipated Discharge: > 48 hours
Subjective/Interval History
-
Date of Service: October 27, 2024
states of back pain
states no bm for 1-2 days
Objective Data
-
Vital Signs:
Vital Signs
Temp Pulse Resp BP Pulse Ox
98.4 F 72 18 175/100 95
10/27/24 07:30 10/27/24 07:30 10/27/24 07:30 10/27/24 07:30 10/27/24 07:30
I&O
10/26/24 10/27/24 10/28/24
06:59 06:59 06:59
Intake Total 1370 / 1370
Output Total 400 / 400 1200 / 1200
Balance -400 / -400 170 / 170
Physical Exam
-
General: Well Developed, Appears in Distress and Pain
HEENT: Normocephalic, Atraumatic and Moist Mucous Membranes
Respiratory: Clear to Auscultation
Cardiac: Regular Rhythm and S1/S2; Negative Murmur, Rub or Gallop
GI: Soft, Nontender, Nondistended and Normal Bowel Sounds; Negative Organomegaly
Rectal: Deferred by Provider
Musculoskeletal: No Clubbing, No Cyanosis, No Edema and Other (TTP to paraspinal muscle R>>L )
Skin: Negative Rash
Neuro: Awake, AO x 3 and Nonfocal/Grossly Intact
Psych: Calm
Data Reviewed
-
Total Time Spent with Patient (in minutes): 55
[2024-10-27] MEDS: FLEXERIL 5 MG PO ×2 (11:10→22:35)
[2024-10-27 12:12] VITALS: BP 154/60
[2024-10-27 12:44] VITALS: BP 134/83
[2024-10-27 16:00] VITALS: BP 150/95
[2024-10-27] MEDS: MEDROL 8 MG PO (22:32)
[2024-10-27 23:33] VITALS: BP 162/106
[2024-10-28] MEDS: MORPHINE SULFATE 2 MG IV ×4 (00:31→23:08)
[2024-10-28] MEDS: MAXIPIME 2000 MG IV ×2 (04:26→15:42)
[2024-10-28] MEDS: STERILE WATER FOR INJECTION 10 ML IV ×2 (04:29→15:44)
[2024-10-28] MEDS: VALIUM 2 MG PO (04:38)
[2024-10-28] MEDS: ROXICODONE 5 MG PO ×4 (04:38→17:42)
[2024-10-28 06:00] VITALS: BMI 30.2
[2024-10-28 07:50] VITALS: BP 180/109
[2024-10-28] MEDS: MIRALAX 17 GRAMS PO (07:53)
[2024-10-28] MEDS: SENOKOT-S 1 TABLET PO ×2 (07:54→22:26)
[2024-10-28] MEDS: PROSCAR 5 MG PO (07:54)
[2024-10-28] MEDS: TYLENOL 1000 MG PO ×3 (07:54→22:27)
[2024-10-28] MEDS: THIAMINE INJECTION 200 MG IV (07:54)
[2024-10-28] MEDS: TOPROL XL 25 MG PO (07:54)
[2024-10-28] MEDS: HEPARIN 5000 UNITS SC ×2 (07:54→22:22)
[2024-10-28] MEDS: MEDROL 4 MG PO ×4 (07:55→22:26)
[2024-10-28] MEDS: FLOMAX 0.4 MG PO (07:55)
[2024-10-28] MEDS: FOLVITE 1 MG PO (07:55)
[2024-10-28] MEDS: COZAAR 50 MG PO (07:55)
[2024-10-28 08:03] LABS: % Basophils 0.4 % (0-2); % Eosinophils 0.4 % (0-6); % Immature Granulocytes 0.5 % (0-0.5); % Lymphocytes 13.6 % (20.5-51.1); % Monocytes 3.9 % (1.7-9.3); % Neutrophils 81.2 % (42.2-75.2); Absolute Basophils 0.1 10^3/uL (0-0.2); Absolute Eosinophils 0.1 10^3/uL (0-0.7); Absolute Immature Granulocytes 0.1 10^3/uL (0-0.05); Absolute Lymphocytes 1.9 10^3/uL (1.2-3.4); Absolute Monocytes 0.6 10^3/uL (0.1-0.6); Absolute Neutrophils 11.6 10^3/uL (1.4-6.5); Hematocrit 50.6 % (39.0-52.0); Hemoglobin 17.9 g/dL (13.0-18.0); Mean Corp Hgb Conc. 35.4 g/dL (33.0-37.0); Mean Corpuscular Hgb 32.4 pg (27.0-31.0); Mean Corpuscular Volume 91.7 fL (80.0-94.0); Mean Platelet Volume 9.4 fL (7.4-10.4); Nucleated Red Blood Cells % 0 % (-); Platelet Count 269 10^3/uL (130-400); Red Blood Cell Count 5.52 10^6/uL (4.70-6.10); Red Cell Dist. Width 12.7 % (11.5-14.5); White Blood Cell Count 14.2 10^3/uL (4.8-10.8)
[2024-10-28 09:02] LABS: Blood Urea Nitrogen 23 mg/dl (9-20); Calcium 10.1 mg/dl (8.4-10.2); Carbon Dioxide 25 mmol/L (22-30); Chloride 97 mmol/L (98-107); Estimated Creatinine Clearance 117 ml/min; Glucose 164 mg/dl (70-99); Potassium 4.6 mmol/L (3.5-5.1); Sodium 136 mmol/L (135-145); eGFR > 60.00
[2024-10-28 11:30] VITALS: BP 170/103
[2024-10-28] MEDS: FLEXERIL 5 MG PO (12:06)
[2024-10-28] MEDS: APRESOLINE 5 MG IV (12:07)
[2024-10-28] MEDS: DICLOFENAC 1% TOPICAL GEL 2 GRAM TOPICAL ×2 (12:07→17:42)
--- NOTE | 2024-10-28 12:21 | CM ---
Addendum entered by Anna Cruz 10/28/24 15:12:
client manager [employer] will await updated PT/OT notes and recommendations, patient was hoping to return to home with [facility] and assistance from his girlfriend.
Original Note:
client manager [employer] reviewed patient's chart and spoke with [facility] and per infusion company patient has met his deductible, and medication is covered 80%, [facility] to provide coverage information to patient, and to teach.
Plan; Per [facility] they patient will be set up for teaching for home IV ABX.
[2024-10-28 13:13] VITALS: BP 139/100; PULSE 93; O2SAT 96
[2024-10-28 13:21] VITALS: BP 142/104
--- NOTE | 2024-10-28 13:37 | W.PN.HOSP.TC ---
Today's Communication/Plan
-
MRI of the right hip
Continue with analgesia
IV cefepime as per ID
Assessment / Plan
Assessment / Plan
#Prostatitis with Fluoroquinolone resistant Pseudomonas aeruginosa
#Complicated UTI
-CT suggest Prostatomegaly with mild circumferential urinary bladder wall thickening, likely in the setting of chronic outlet obstruction
-No stone on CT AP, did show some possible cystitis findings though also may be related to outlet obstruction
-Has known BPH with chronic outlet obstruction that likely contributed
-ID following, recommended IV cefepime 2 g every 12 hours with outpatient course provided
-Status post midline placement
#BPH
-Flomax
-bladder scans and post-void residual
-Follow-up with urology outpatient
#Uncontrolled Primary Hypertension
-History of Pedal edema with amlodipine 10 mg daily which necessitated discontinuation
-Current home regimen includes losartan and metoprolol
-Most likely pain mediated; has improved with adequate analgesia
-Currently on IV hydralazine as needed for spikes in BP
-Consider increasing losartan dose if remains persistently high
#Acute right hip/lower back pain
#Right groin paresthesia
-Lumbar x-ray with Grade II spondylolisthesis of L5 on S1 with accompanying bilateral spondylolysis
-Right hip x-ray negative for fracture or signs of significant right hip osteoarthritis
-c/w CHEMIST INTERNSHIP Medrol dose pack, Valium, Flexeril pain control PT and OT will be required
-Order MRI of the right hip to further assess
-Start Voltaren local applications
#HX Alcohol Use Disorder
-last drink was 3 days a go , a couple of beer
-suspect low risk for ETOH WDS
-observe ETOH WDS
#Chronic Shortness of Breath HX
-Former smoker
-more than a year, per him
-reports PFTs or peak flow study and told him he has borderline COPD
-No signs of hypoxemia or significant CO2 retention now
DVT PPhx: SQH
Diet: Cholesterol-lowering, 2 g sodium restriction
CODE STATUS: Full code
Anticipated Discharge: 24 - 48 hours
Subjective/Interval History
-
Date of Service: October 28, 2024
Seen and examined at the bedside. No acute events reported overnight. AFVSS this morning
Complains of significant pain to his right hip with numbness in his right inguinal region/groin
Denies any other new complaints at this time
Objective Data
-
Labs:
Laboratory Results
10/28/24
07:51
WBC 14.2 H
Hgb 17.9
Hct 50.6
Plt Count 269
Sodium 136
Potassium 4.6
Chloride 97 L
Carbon Dioxide 25
BUN 23 H
Creatinine 0.8
Glucose 164 H
Calcium 10.1
Vital Signs:
Vital Signs
Temp Pulse Resp BP Pulse Ox
97.8 F 95 18 142/104 98
10/28/24 07:50 10/28/24 13:21 10/28/24 07:50 10/28/24 13:21 10/28/24 07:50
I&O
10/27/24 10/28/24 10/29/24
06:59 06:59 06:59
Intake Total 1370 / 1370 960 / 960
Output Total 1200 / 1200
Balance 170 / 170 960 / 960
Review of Systems
-
History Source: Patient
All other systems: Reviewed and negative
Physical Exam
-
General: Well Developed, Well Nourished, Pain and Obese
HEENT: Normocephalic, Atraumatic and Moist Mucous Membranes
Respiratory: Clear to Auscultation and Non Labored Respirations
Cardiac: Regular Rhythm and S1/S2; Negative Murmur, Rub or Gallop
GI: Soft, Nontender, Nondistended and Normal Bowel Sounds
Musculoskeletal: No Clubbing, No Cyanosis, No Edema and Other (Reduced ROM to right hip, no pain to palpation)
Skin: Warm and Dry; Negative Rash
Neuro: AO x 3, No Motor Deficits, Central Nerve's Intact and Other (Paresthesia of the right inguinal region)
Psych: Calm
Data Reviewed
-
Labs: Labs Reviewed by me and Discussed with Patient
[2024-10-28 15:30] VITALS: BP 152/106
[2024-10-28] MEDS: DULCOLAX 10 MG RECTAL (15:44)
--- NOTE | 2024-10-28 15:51 | W.PN.ID1 ---
Date of Service
Date of Service: October 28, 2024
Today's Communication
- when home IV antibiotics can be set up then patient will be stable for dc from ID perspective
Assessment / Plan
Probable Prostatitis due to quinolone resistant Pseudomonas
- urine culture 100 K Pseudomonas
- CT with cystitis, chronic outlet obstruction, DJD
- c/w cefepime 2 gm IV q12
- script provided to machine adjuster leader case trim 10/27
- midline placement
- when home IV antibiotics can be set up then patient will be stable for dc from ID perspective
Chief Complaint
-: Other (prostatitis)
Subjective / Review of Systems
afebrile
bp stable
tolerating current therapies
Vital Signs / Physical Exam
Vital Signs
Vital Signs
Temp Pulse Resp BP Pulse Ox
97.8 F 95 18 142/104 98
10/28/24 07:50 10/28/24 13:21 10/28/24 07:50 10/28/24 13:21 10/28/24 07:50
Physical Exam
Constitutional: No Acute Distress
Cardiovascular: Regular Rate and S1/S2; Negative Murmur or Rub
Pulmonary: Clear and Symmetric; Negative Wheezes or Rales
Gastrointestinal: Soft, Non Tender, Non Distended and Normal Bowel Sounds
Skin: Warm and Dry; Negative Rash or Jaundice
Objective Data
Lab Data
Lab Results
10/28/24 07:51
10/28/24 07:51
Estimated Creat Clear 117 ml/min 10/28/24 07:51
Total Bilirubin 1.2 mg/dl (0.2-1.3) 10/25/24 15:07
GGT Cancelled 10/25/24 20:27
AST 32 U/L (17-59) 10/25/24 15:07
ALT 34 U/L (0-50) 10/25/24 15:07
Alkaline Phosphatase 78 U/L (38-126) 10/25/24 15:07
Most recent labs reviewed.
Micro Results:
10/25/24 16:08 Urine Culture - Final
Urine Pseudomonas aeruginosa
[2024-10-28 19:56] LABS: Hepatitis C Antibody Negative (Negative)
[2024-10-28] MEDS: VITAMIN B1 100 MG PO (22:26)
[2024-10-28] MEDS: DICLOFENAC 1% TOPICAL GEL 100 GRAM TOPICAL (22:28)
[2024-10-28 22:55] VITALS: BP 168/101
[2024-10-29] VITALS (7 sets, daily range): BP systolic 123–183; BP diastolic 73–115; PULSE 80–90; O2SAT 95; BMI 30.2
[2024-10-29] MEDS: ROXICODONE 5 MG PO ×3 (00:41→17:15)
[2024-10-29] MEDS: MORPHINE SULFATE 2 MG IV (03:22)
[2024-10-29] MEDS: FLEXERIL 5 MG PO ×3 (03:23→22:52)
[2024-10-29] MEDS: MAXIPIME 2000 MG IV ×2 (03:26→15:14)
[2024-10-29] MEDS: STERILE WATER FOR INJECTION 10 ML IV ×2 (03:26→15:14)
[2024-10-29 06:41] LABS: % Basophils 0.7 % (0-2); % Eosinophils 1.6 % (0-6); % Immature Granulocytes 0.3 % (0-0.5); % Lymphocytes 16.3 % (20.5-51.1); % Monocytes 7.6 % (1.7-9.3); % Neutrophils 73.5 % (42.2-75.2); Absolute Basophils 0.1 10^3/uL (0-0.2); Absolute Eosinophils 0.2 10^3/uL (0-0.7); Absolute Lymphocytes 1.9 10^3/uL (1.2-3.4); Absolute Monocytes 0.9 10^3/uL (0.1-0.6); Absolute Neutrophils 8.6 10^3/uL (1.4-6.5); Hematocrit 46.8 % (39.0-52.0); Hemoglobin 16.3 g/dL (13.0-18.0); Mean Corp Hgb Conc. 34.8 g/dL (33.0-37.0); Mean Corpuscular Volume 91.9 fL (80.0-94.0); Mean Platelet Volume 9.2 fL (7.4-10.4); Nucleated Red Blood Cells % 0 % (-); Platelet Count 256 10^3/uL (130-400); Red Blood Cell Count 5.09 10^6/uL (4.70-6.10); Red Cell Dist. Width 12.8 % (11.5-14.5); White Blood Cell Count 11.7 10^3/uL (4.8-10.8)
[2024-10-29 07:00] LABS: Blood Urea Nitrogen 19 mg/dl (9-20); Calcium 9.5 mg/dl (8.4-10.2); Carbon Dioxide 25 mmol/L (22-30); Chloride 101 mmol/L (98-107); Estimated Creatinine Clearance 104 ml/min; Glucose 129 mg/dl (70-99); Potassium 4.5 mmol/L (3.5-5.1); Sodium 137 mmol/L (135-145); eGFR > 60.00
[2024-10-29] MEDS: PROSCAR 5 MG PO (08:01)
[2024-10-29] MEDS: TYLENOL 1000 MG PO ×3 (08:01→22:48)
[2024-10-29] MEDS: MEDROL 4 MG PO ×2 (08:01→11:41)
[2024-10-29] MEDS: VITAMIN B1 100 MG PO ×2 (08:01→20:02)
[2024-10-29] MEDS: MIRALAX 17 GRAMS PO (08:01)
[2024-10-29] MEDS: FLOMAX 0.4 MG PO (08:02)
[2024-10-29] MEDS: SENOKOT-S 1 TABLET PO ×2 (08:02→20:02)
[2024-10-29] MEDS: COZAAR 50 MG PO (08:02)
[2024-10-29] MEDS: TOPROL XL 25 MG PO (08:02)
[2024-10-29] MEDS: FOLVITE 1 MG PO (08:03)
[2024-10-29] MEDS: DICLOFENAC 1% TOPICAL GEL 2 GRAM TOPICAL ×3 (08:03→17:15)
[2024-10-29] MEDS: HEPARIN 5000 UNITS SC ×2 (08:03→20:03)
[2024-10-29] MEDS: ROXICODONE 10 MG PO ×3 (09:31→20:02)
--- NOTE | 2024-10-29 11:05 | CM ---
Addendum entered by Ashley Moyer 10/29/24 17:31:
discharge on hold, increased pain - nursing tt Dr. Burr
Notified Navi at [facility], Notified Aurea from [facility]
Will follow up with them tomorrow regarding plan
Addendum entered by Ashley Moyer 10/29/24 14:07:
Patient would like to go home.
IV teaching done at bedside by Jordi from [facility]
Jordi states independent with IV admin.
states IV medication to be delivered tonight by [facility]
Virtual visit tomorrow by [facility]
CM consult completed for [facility] referral entered in [facility] - spoke with Aurea accepted
IMM explained & signed. In chart
tt hospitalist
PLAN: home with IV antibiotic,with [facility]
Fax #: [phone]
drove self
Original Note:
Nelida with patient along with hospitalist
Patient has midline - will fax to [facility]
Script for IV cefepime 2gm IV q12h end 11/08
Spoke with Navi at [facility]
Discussed cost with patient - agreeable
PT rec SNF vs. HH
PT to re-eval today
PLAN: SNF vs. HH -Await PT Re-eval
--- NOTE | 2024-10-29 11:12 | W.PN.ID1 ---
Date of Service
Date of Service: October 29, 2024
Today's Communication
- c/w cefepime 2 gm IV q12
- script provided to case specialist 10/27
- midline placement
- when home IV antibiotics can be set up then patient will be stable for dc from ID perspective
Assessment / Plan
Probable Prostatitis due to quinolone resistant Pseudomonas
- urine culture 100 K Pseudomonas
- CT with cystitis, chronic outlet obstruction, DJD
- c/w cefepime 2 gm IV q12
- script provided to case specialist 10/27
- midline placement
- when home IV antibiotics can be set up then patient will be stable for dc from ID perspective
Chief Complaint
-: Other (prostatitis)
Subjective / Review of Systems
afebrile
bp stable
reports improved hip pain, no cva tenderness
Vital Signs / Physical Exam
Vital Signs
Vital Signs
Temp Pulse Resp BP Pulse Ox
97.6 F 94 16 136/91 97
10/29/24 07:38 10/29/24 09:30 10/29/24 07:38 10/29/24 09:30 10/29/24 07:38
Physical Exam
Constitutional: No Acute Distress
Cardiovascular: Regular Rate and S1/S2; Negative Murmur or Rub
Pulmonary: Clear and Symmetric; Negative Wheezes or Rales
Gastrointestinal: Soft, Non Tender, Non Distended and Normal Bowel Sounds
Skin: Warm and Dry; Negative Rash or Jaundice
Objective Data
Lab Data
Lab Results
10/29/24 06:03
10/29/24 06:03
Estimated Creat Clear 104 ml/min 10/29/24 06:03
Total Bilirubin 1.2 mg/dl (0.2-1.3) 10/25/24 15:07
GGT Cancelled 10/25/24 20:27
AST 32 U/L (17-59) 10/25/24 15:07
ALT 34 U/L (0-50) 10/25/24 15:07
Alkaline Phosphatase 78 U/L (38-126) 10/25/24 15:07
Most recent labs reviewed.
Micro Results:
10/25/24 16:08 Urine Culture - Final
Urine Pseudomonas aeruginosa
--- NOTE | 2024-10-29 11:50 | W.PN.HOSP.TC ---
Addendum entered and electronically signed by Michael Burr DO 10/29/24 18:27:
Alerted by nursing that patient was very unsteady at time of discharge, leaning to right and complaining of significant pain. Was seen by PT earlier who recommended home therapy. Will cancel DC and attempt to obtain in-patient MRI of hip. Will DC
steroid due to risk of osteonecrosis.
Original Note:
Today's Communication/Plan
-
PT reassessment
Analgesics
Possible home later today
Outpatient open MRI of right hip
Assessment / Plan
Assessment / Plan
#Prostatitis with Fluoroquinolone resistant Pseudomonas aeruginosa
#Complicated UTI
-CT suggest Prostatomegaly with mild circumferential urinary bladder wall thickening, likely in the setting of chronic outlet obstruction
-No stone on CT AP, did show some possible cystitis findings though also may be related to outlet obstruction
-Has known BPH with chronic outlet obstruction that likely contributed
-ID following, recommended IV cefepime 2 g every 12 hours with outpatient course provided
-Status post midline placement
#BPH
-Flomax
-bladder scans and post-void residual
-Follow-up with urology outpatient
#Uncontrolled Primary Hypertension
-History of Pedal edema with amlodipine 10 mg daily which necessitated discontinuation
-Current home regimen includes losartan and metoprolol
-Most likely pain mediated; has improved with adequate analgesia
-Currently on IV hydralazine as needed for spikes in BP
-Consider increasing losartan dose if remains persistently high
#Acute right hip/lower back pain
#Right groin paresthesia
-Lumbar x-ray with Grade II spondylolisthesis of L5 on S1 with accompanying bilateral spondylolysis
-Right hip x-ray negative for fracture or signs of significant right hip osteoarthritis
-c/w MOTOR AND GENERATOR BRUSH CUTTER Medrol dose pack, Valium, Flexeril pain control PT and OT will be required
-Will provide prescription for outpatient open MRI at patient request
-c/w Voltaren local applications
#HX Alcohol Use Disorder
-last drink was 3 days a go , a couple of beer
-suspect low risk for ETOH WDS
-observe ETOH WDS
#Chronic Shortness of Breath HX
-Former smoker
-more than a year, per him
-reports PFTs or peak flow study and told him he has borderline COPD
-No signs of hypoxemia or significant CO2 retention now
DVT PPhx: SQH
Diet: Cholesterol-lowering, 2 g sodium restriction
CODE STATUS: Full code
Anticipated Discharge: Within 24 hours
Subjective/Interval History
-
Date of Service: October 29, 2024
Seen and examined at the bedside. No acute events reported overnight. Hypertensive secondary to pain though otherwise stable on room air
States he still has significant right hip pain, worse with ambulation.
Denies any new complaints today
Objective Data
-
Labs:
Laboratory Results
10/29/24
06:03
WBC 11.7 H
Hgb 16.3
Hct 46.8
Plt Count 256
Sodium 137
Potassium 4.5
Chloride 101
Carbon Dioxide 25
BUN 19
Creatinine 0.8
Glucose 129 H
Calcium 9.5
Vital Signs:
Vital Signs
Temp Pulse Resp BP Pulse Ox
97.6 F 94 16 136/91 97
10/29/24 07:38 10/29/24 09:30 10/29/24 07:38 10/29/24 09:30 10/29/24 07:38
I&O
10/28/24 10/29/24 10/30/24
06:59 06:59 06:59
Intake Total 960 / 960 1380 / 1380
Balance 960 / 960 1380 / 1380
Review of Systems
-
History Source: Patient
All other systems: Reviewed and negative
Physical Exam
-
General: Well Developed, No Apparent Distress, Comfortable and Obese
HEENT: Normocephalic, Atraumatic and Moist Mucous Membranes
Respiratory: Clear to Auscultation and Non Labored Respirations
Cardiac: Regular Rhythm and S1/S2; Negative Murmur, Rub, JVD or Gallop
GI: Soft, Nontender, Nondistended and Normal Bowel Sounds
Musculoskeletal: No Clubbing, No Cyanosis, No Edema and Other (Reduced range of motion to right hip)
Skin: Warm, Dry and Normal Turgor; Negative Rash
Neuro: AO x 3 and Nonfocal/Grossly Intact; Negative Tremors
Psych: Calm
Data Reviewed
-
Labs: Labs Reviewed by me and Discussed with Patient
--- NOTE | 2024-10-29 14:44 | PN.CDI ---
CDI
- -
CDI:
Physician Documentation Request
Admit Date: 10/25/24 19:44
Dear Doctor Leno,
Patient admitted for UTI.
10/29 Hospitalist PN: 'Prostatitis with Fluoroquinolone resistant Pseudomonas aeruginosa...CT suggest Prostatomegaly with mild circumferential urinary bladder wall thickening, likely in the setting of chronic outlet obstruction'
Clarify which of the following accurately represents the acuity of the prostatitis. Possible options might include:
____ Acute
Acute on Chronic
Chronic
____ Other
Use of terms such as suspected, likely, concern for, or probable (associated with a specific diagnosis that is being evaluated, monitored, or treated as if it exists) are acceptable and can be coded in the inpatient setting, when documented at the
time of discharge.
Thank you,
Kasey Robertson RN, BSN
CDI Specialist
Available via [place] text
Please use your independent medical judgment in providing your response.
[2024-10-29] MEDS: PREVNAR 20 0.5 ML IM (15:10)
[2024-10-29] MEDS: APRESOLINE 5 MG IV (15:13)
--- NOTE | 2024-10-29 17:08 | PTCARENOTE ---
Pt ambulating in hallway. Pt stated, 'I have to sit down'. Pt informed this RN he has to walk to car in back of main parking lot. Pt stated, 'I am in a lot of pain, my right hip is cramping and I feel hot'. Pt c/o 10/10 pain throughout right hip. Pt
unable to bear complete weight onto right hip. Pt limping. MD called on telephone and made aware. MD informed this RN he will cancel discharge order. marine service manager made aware.
[2024-10-29] MEDS: DICLOFENAC 1% TOPICAL GEL 1 GRAM TOPICAL (22:49)
[2024-10-29] MEDS: VALIUM 2 MG PO (22:53)
[2024-10-30] MEDS: ROXICODONE 10 MG PO ×4 (01:29→14:28)
[2024-10-30] MEDS: MAXIPIME 2000 MG IV ×2 (03:49→17:00)
[2024-10-30] MEDS: STERILE WATER FOR INJECTION 10 ML IV ×2 (03:50→17:00)
[2024-10-30 06:00] VITALS: BMI 30.4
[2024-10-30 07:05] VITALS: BP 187/116
[2024-10-30] MEDS: HEPARIN 5000 UNITS SC (08:47)
[2024-10-30] MEDS: FOLVITE 1 MG PO (08:47)
[2024-10-30] MEDS: FLOMAX 0.4 MG PO (08:47)
[2024-10-30] MEDS: PROSCAR 5 MG PO (08:48)
[2024-10-30] MEDS: TOPROL XL 25 MG PO (08:48)
[2024-10-30] MEDS: TYLENOL 1000 MG PO ×2 (08:48→14:27)
[2024-10-30] MEDS: VITAMIN B1 100 MG PO (08:48)
[2024-10-30] MEDS: SENOKOT-S 1 TABLET PO (08:48)
[2024-10-30] MEDS: MIRALAX 17 GRAMS PO (08:49)
[2024-10-30] MEDS: COZAAR 50 MG PO (08:51)
[2024-10-30] MEDS: APRESOLINE 10 MG IV (08:52)
[2024-10-30] MEDS: NORVASC 5 MG PO (08:57)
[2024-10-30] MEDS: DICLOFENAC 1% TOPICAL GEL 100 GRAM TOPICAL ×2 (08:58→14:27)
[2024-10-30 09:13] LABS: % Basophils 0.7 % (0-2); % Eosinophils 2.9 % (0-6); % Immature Granulocytes 0.3 % (0-0.5); % Lymphocytes 18.9 % (20.5-51.1); % Monocytes 5.6 % (1.7-9.3); % Neutrophils 71.6 % (42.2-75.2); Absolute Basophils 0.1 10^3/uL (0-0.2); Absolute Eosinophils 0.3 10^3/uL (0-0.7); Absolute Lymphocytes 2.2 10^3/uL (1.2-3.4); Absolute Monocytes 0.7 10^3/uL (0.1-0.6); Absolute Neutrophils 8.3 10^3/uL (1.4-6.5); Hematocrit 45.9 % (39.0-52.0); Hemoglobin 16.5 g/dL (13.0-18.0); Mean Corp Hgb Conc. 35.9 g/dL (33.0-37.0); Mean Corpuscular Hgb 33.1 pg (27.0-31.0); Mean Platelet Volume 9.7 fL (7.4-10.4); Nucleated Red Blood Cells % 0 % (-); Platelet Count 253 10^3/uL (130-400); Red Blood Cell Count 4.99 10^6/uL (4.70-6.10); Red Cell Dist. Width 12.8 % (11.5-14.5); White Blood Cell Count 11.6 10^3/uL (4.8-10.8)
[2024-10-30 09:42] LABS: Blood Urea Nitrogen 21 mg/dl (9-20); Calcium 9.9 mg/dl (8.4-10.2); Carbon Dioxide 25 mmol/L (22-30); Chloride 99 mmol/L (98-107); Estimated Creatinine Clearance 117 ml/min; Glucose 160 mg/dl (70-99); Potassium 4.4 mmol/L (3.5-5.1); Sodium 135 mmol/L (135-145); eGFR > 60.00
[2024-10-30] MEDS: DILAUDID 1 MG IV (10:27)
--- NOTE | 2024-10-30 12:27 | W.PN.HOSP.TC ---
Today's Communication/Plan
-
Resume amlodipine
Start pregabalin
Repeat PT eval
Discharge today if disposition for home
Assessment / Plan
Assessment / Plan
#Acute Prostatitis with Fluoroquinolone resistant Pseudomonas aeruginosa
#Complicated UTI
-CT suggest Prostatomegaly with mild circumferential urinary bladder wall thickening, likely in the setting of chronic outlet obstruction
-No stone on CT AP, did show some possible cystitis findings though also may be related to outlet obstruction
-Has known BPH with chronic outlet obstruction that likely contributed
-ID following, recommended IV cefepime 2 g every 12 hours with outpatient course provided
-Status post midline placement
#Acute right hip/lower back pain
#Right groin paresthesia
-Lumbar x-ray with Grade II spondylolisthesis of L5 on S1 with accompanying bilateral spondylolysis
-Right hip x-ray negative for fracture or signs of significant right hip osteoarthritis
-Lumbar and pelvic CT scan without any significant acute findings in the right
-MRI of the right hip without contrast today did not show any acute findings
-c/w FOAM TANK LAMINATOR Medrol dose pack, Valium, Flexeril pain control PT and OT will be required
-c/w Voltaren local applications
-Start pregabalin empirically for neuropathy
#BPH
-Flomax
-bladder scans and post-void residual
-Follow-up with urology outpatient
#Uncontrolled Primary Hypertension
-History of Pedal edema with amlodipine 10 mg daily which necessitated discontinuation
-Current home regimen includes losartan and metoprolol
-Most likely pain mediated; has improved with adequate analgesia
-Currently on IV hydralazine as needed for spikes in BP
-Will resume amlodipine at 5 mg today and monitor for edema
-Consider increasing losartan if BP remains elevated
#HX Alcohol Use Disorder
-last drink was 3 days a go , a couple of beer
-suspect low risk for ETOH WDS
-observe ETOH WDS
#Chronic Shortness of Breath HX
-Former smoker
-more than a year, per him
-reports PFTs or peak flow study and told him he has borderline COPD
-No signs of hypoxemia or significant CO2 retention now
DVT PPhx: SQH
Diet: Cholesterol-lowering, 2 g sodium restriction
CODE STATUS: Full code
Anticipated Discharge: Within 24 hours
Subjective/Interval History
-
Date of Service: October 30, 2024
Objective Data
-
Labs:
Laboratory Results
10/30/24
08:50
WBC 11.6 H
Hgb 16.5
Hct 45.9
Plt Count 253
Sodium 135
Potassium 4.4
Chloride 99
Carbon Dioxide 25
BUN 21 H
Creatinine 0.8
Glucose 160 H
Calcium 9.9
Vital Signs:
Vital Signs
Temp Pulse Resp BP Pulse Ox
98.0 F 100 19 180/96 97
10/30/24 07:05 10/30/24 08:48 10/30/24 07:05 10/30/24 08:48 10/30/24 07:05
I&O
10/29/24 10/30/24 10/31/24
06:59 06:59 06:59
Intake Total 1380 / 1380 960 / 960
Output Total 180 / 180
Balance 1380 / 1380 960 / 960 -180 / -180
[2024-10-30 13:18] VITALS: BP 118/76
--- NOTE | 2024-10-30 13:39 | W.PN.ID1 ---
Date of Service
Date of Service: October 30, 2024
Today's Communication
- c/w cefepime 2 gm IV q12; duration through 11/08
Assessment / Plan
Probable Prostatitis due to quinolone resistant Pseudomonas
- urine culture 100 K Pseudomonas
- CT with cystitis, chronic outlet obstruction, DJD
- c/w cefepime 2 gm IV q12; duration through 11/08
- script provided to major case detective 10/27
- midline placement
- when home IV antibiotics can be set up then patient will be stable for dc from ID perspective
Chief Complaint
-: Other (prostatitis)
Subjective / Review of Systems
afebrile
bp stable
tolerating current therapies
Vital Signs / Physical Exam
Vital Signs
Vital Signs
Temp Pulse Resp BP Pulse Ox
98.0 F 99 19 118/76 97
10/30/24 07:05 10/30/24 13:18 10/30/24 07:05 10/30/24 13:18 10/30/24 07:05
Physical Exam
Constitutional: No Acute Distress
Cardiovascular: Regular Rate and S1/S2; Negative Murmur or Rub
Pulmonary: Clear and Symmetric; Negative Wheezes or Rales
Gastrointestinal: Soft, Non Tender, Non Distended and Normal Bowel Sounds
Skin: Warm and Dry; Negative Rash or Jaundice
Objective Data
Lab Data
Lab Results
10/30/24 08:50
10/30/24 08:50
Estimated Creat Clear 117 ml/min 10/30/24 08:50
Total Bilirubin 1.2 mg/dl (0.2-1.3) 10/25/24 15:07
GGT Cancelled 10/25/24 20:27
AST 32 U/L (17-59) 10/25/24 15:07
ALT 34 U/L (0-50) 10/25/24 15:07
Alkaline Phosphatase 78 U/L (38-126) 10/25/24 15:07
Most recent labs reviewed.
Micro Results:
10/25/24 16:08 Urine Culture - Final
Urine Pseudomonas aeruginosa
[2024-10-30] MEDS: LYRICA 75 MG PO (14:27)
[2024-10-30 15:05] VITALS: BP 124/80
[2024-10-30 15:40] VITALS: BP 137/95; PULSE 93; O2SAT 95
--- NOTE | 2024-10-30 16:05 | W.DCSUMMARY ---
Discharge Summary
Discharge Data
Date of Admission: 10/25/24
Date of Discharge: 10/30/24
Total time spent discharging patient (in min): 35
-
Pending Results: No
Hospital Course
Discharging Physician :�Michael Burr DO
Disposition :���� Home with home care
Principal Discharge diagnosis :�
Acute prostatitis with fluoroquinolone resistant Pseudomonas
Right hip pain
Neuropathy/radiculopathy
Constipation
Chronic Discharge diagnosis :�
GERD
Hypertension
Neuropathy
BPH
H/O EtOH abuse
H/O tobacco use
Hospital Course :�
64-year-old male that presented to the hospital with complaints of back pain and an outpatient abnormal urinalysis. Had multiple trips to the emergency department for lower back pain with symptoms of sciatica. Was started on Solu-Medrol Dosepak
without improvement. Had urinalysis and culture obtained on initial ED visit that showed fluoroquinolone resistant Pseudomonas aeruginosa that was resistant to the cefpodoxime and amoxicillin the patient was sent home with. Was it mated to the
hospital for IV antibiotics in the context of complicated UTI with resistant Pseudomonas. Evaluated by infectious disease who recommended IV cefepime 2 g every 12 hours through the end of 11/08/2024. Infectious disease provided prescriptions and
case management arranged for home antibiotics. Patient remained in hospital for significant right hip and groin pain with paresthesias of the right inguinal region. No urinary incontinence or saddle anesthesia. Had multiple x-rays that did not
show any signs of advanced osteoarthritis. CT pelvis demonstrated spondylolisthesis of L5 on S1 but did not show any other acute findings. Ultimately had MRI of the right hip that was negative for acute processes such as avascular necrosis, soft
tissue injury, occult bony fractures. Was titrated onto analgesic regimen with Tylenol standing and oxycodone 5 mg / 10 mg as needed for breakthrough moderate and severe pain. Recommended that he have outpatient physical therapy with follow-up
with his PCP and orthopedics. Should have consideration for MRI lumbosacral spine if not symptomatically improved with physical therapy.
Of note, did have significant hypertension with systolic blood pressure persistently in the range of 170 to 180 mmHg in the context of significant pain. Resumed patient on home amlodipine at 5 mg daily which was recently discontinued due to pedal
edema. Recommend that he continue amlodipine and use leg elevation and compression stockings for supportive care of recurrent edema if needed. Should follow-up with PCP and have consideration for up titration of losartan. Blood pressure on day of
discharge 124/60 mmHg
Consultants :
Infectious disease: Marie Barnard MD
Important imaging findings :�
CT A/P without IV contrast (10/25/2024)
IMPRESSION: There is no hydronephrosis or renal calculus. Prostatomegaly with mild circumferential urinary bladder wall thickening, similar to prior and likely in the setting of chronic outlet obstruction. Superimposed cystitis is possible. Consider
correlation with urinalysis. Chronic degenerative changes of the lumbar spine with grade 2 anterolisthesis of L5 on S1. Small fat-containing umbilical and right inguinal hernias.
X-ray of right hip 2�3 view (10/26/24)
FINDINGS: There is no recent cortical fracture, dislocation or focal bony destructive process. Some mild hypertrophic degenerative changes are seen about the hips bilaterally and about the symphysis pubis. Numerous small anomaly rounded
calcifications are seen within the soft tissues of the true pelvis most likely representing phleboliths.
IMPRESSION: Mild degenerative changes. No findings to suggest recent cortical fracture.
X-ray lumbar spine 2 or 3 views (10/26/24)
FINDINGS: Disc spaces: L5-S1 disc space narrowing compatible with degenerative disc disease. Vertebral stature: No vertebral compression deformity. Alignment: There is Grade II spondylolisthesis of L5 on S1 with accompanying bilateral spondylolysis
and accompanying degenerative changes. Soft tissues: No displacement of the paravertebral lines.
IMPRESSION: Degenerative changes of the lower lumbar spine. Grade II spondylolisthesis of L5 on S1 with accompanying bilateral spondylolysis.
MRI right hip without contrast (10/30/24)
FINDINGS: No abnormal signal intensity to indicate occult fracture or avascular necrosis. No definitive evidence to indicate labral tear. No joint effusion. 10 mm benign synovial herniation pit at the superior base of the femoral head. Normal
configuration and signal intensity of the muscles and tendons about the right hip. The fascial planes are preserved. No bursal fluid distention to indicate bursitis. Within the visualized visceral pelvis, there are a few tiny bladder diverticula
noted. Minor sigmoid diverticulosis. Fat-containing right inguinal hernia measuring 4.8 cm transverse by 2.2 cm AP.
IMPRESSION: No significant abnormality identified with specific attention to the right hip.
Procedure findings :� N/A
Follow-up :
Referral provided for outpatient orthopedist
Follow-up with family doctor in 1 to 2 weeks for consideration of MRI lumbosacral spine
Home care established for visiting nurse and home PT
Discharge Plan
-
Patient Disposition: Home (Routine Discharge)
Discharge Diagnosis/Procedures: Prostatitis with fluoroquinolone resistant Pseudomonas
Right hip pain
Neuropathy
History of alcohol and substance abuse
History of tobacco use
Condition: Fair
Diet: Low Cholesterol and No added salt
Activity: As tolerated
Driving Restrictions: As prior to admission
Bathing Restrictions: None
Blood Work: Follow-up with your family doctor repeat CBC in 1-2 weeks
Others Tests: MRI of the lumbosacral spine (to be ordered, if needed, by your family doctor)
Other Services: VN and PT
Activity Restrictions/Additional Instructions:
After discharge from the hospital you should follow-up with your family doctor. Should be seen in the office within 1 to 2 weeks of discharge from the hospital.
Contact orthopedics office below to schedule office visit. Should call their office and notify them of your MRI prescription so that they are aware the test is occurring
Instructions: Hip pain in adults, Bacterial prostatitis
Referrals:
Kristian Clifford MD [Family Provider] -
Kwadwo Gonzales MD [Active] - (Call office to schedule)
Additional Discharge Medication Instructions: Continue cefepime 2 g IV every 12 hours to the end of 11/08/2024
Use heparin IV line flushes if midline becomes clogged from clotting
Use [id number] Tylenol 1000 mg up to 4 times daily (every 6 hours)
Use oxycodone 5 mg as needed for moderate breakthrough pain, 10 mg as needed for severe breakthrough pain
Resume amlodipine at 5 mg daily (use leg elevation and compression stockings of the legs to help with fluid retention)
Continue thiamine and folate supplements
Start pregabalin 75 mg twice daily
Start senna 8.6 mg twice daily and bisacodyl 10 mg suppository daily as needed for constipation
Prescriptions:
New
folic acid 1 mg Tablet
1 mg PO DAILY 30 Days Qty: 30 0RF
cefepime 2 gram Recon Soln
2,000 mg IV Q12H Qty: 10 0RF
oxycodone 5 mg Tablet
5 mg PO Q6HPRN PRN (Reason: moderate pain) 5 Days Qty: 20 0RF
oxycodone 10 mg Tablet
10 mg PO Q6HPRN PRN (Reason: severe pain) 5 Days Qty: 20 0RF
thiamine mononitrate (vit B1) 100 mg Tablet
100 mg PO BID 30 Days Qty: 60 0RF
heparin lock flush (porcine) 10 unit/mL solution
10 unit IV BID PRN (Reason: IV line flush) 10 Days
pregabalin 75 mg Capsule
75 mg PO BID 30 Days Qty: 60 0RF
amlodipine 5 mg Tablet
5 mg PO DAILY 30 Days Qty: 30 0RF
bisacodyl 10 mg suppository
10 mg MA DAILY PRN (Reason: Constipation) 7 Days Qty: 12 0RF
sennosides [senna] 8.8 mg/5 mL syrup
5 ml PO BID 7 Days Qty: 70 0RF
Continued
Thera-Tabs Tablet
1 tab PO DAILY
losartan 50 mg Tablet
50 mg PO DAILY Qty: 30 1RF
Patient Comments:
pt stopped this medication last month
Rx Instructions:
pt stopped this medication last month
cyclobenzaprine 10 mg tablet
10 mg PO BID PRN (Reason: neck spasm/tightness) Qty: 14 0RF
Rx Instructions:
dc
tamsulosin [Flomax] 0.4 mg capsule
0.4 mg PO DAILY Qty: 14 0RF
Rx Instructions:
Take 1 capsule by mouth daily
methylprednisolone [Medrol (Musa)] 4 mg tablets,dose pack
See Rx Instructions .ROUTE .COMPLEX Qty: 21 0RF
Rx Instructions:
orally per package directions
metformin 500 mg Tablet
500 mg PO DAILY
metoprolol succinate 25 mg Capsule,Sprinkle,Er 24hr
25 mg PO DAILY
finasteride [Proscar] 5 mg Tablet
5 mg DAILY
Patient Comments:
5mg daily
Rx Instructions:
5 mg daily
Discontinued
amlodipine 2.5 mg Tablet
2.5 mg PO DAILY Qty: 30 1RF
Patient Comments:
pt stopped this medication last month
Rx Instructions:
pt stopped this medication last month
amoxicillin 500 mg capsule
500 mg PO Q8H
Rx Instructions:
amx
amoxicillin 500 mg capsule
500 mg PO Q8H
Patient Comments:
pt stopped this medication last month
cefpodoxime 200 mg tablet
200 mg PO Q12H
Patient Comments:
pt stopped this medication last month
Rx Instructions:
pt stopped this medication last month
cephalexin 500 mg capsule
500 mg PO QID
Patient Comments:
pt stopped this medication last month
Rx Instructions:
pt stopped this medication last month
Discharge Orders:
Discharge Patient (As Directed); Ordered 10/30/24
Ordered By: Michael Burr
Discharge Date and Time
Print Language: SYRIAC
--- NOTE | 2024-10-30 16:06 | CM ---
Patient seen bedside.
Seen after MD reviewed medical with him.
PT ambulated patient in [place] without difficulty.
Patient stable for d/c, okay to drive per MD.
Patient advised not to take any additional pain medications prior to d/c. Nursing updated.
Needs last dose IV anbx prior to d/c.
Plan Home with [facility] for infusion, medications have been delivered, teaching completed.
Patient has SO at home to assist him.
PLAN: home with IV antibiotic,with [facility]
Fax #: [phone]
drove self
[2024-10-30] MEDS: DICLOFENAC 1% TOPICAL GEL TOPICAL (17:12)
[2024-10-30] MEDS: STERILE WATER FOR INJECTION IV (17:12)
== END 2024-10-30 17:15 | disposition home health service (06) | DRG 728 ==
LOC: 3 WEST ACU 19:44
PROVIDERS: Hospitalist; ADMITTING PHYSICIAN Internal Medicine; ATTENDING PHYSICIAN Internal Medicine; CONSULT PHYSICIAN Student in an Organized Health Care Education/Training Program; EMERGENCY PHYSICIAN Emergency Medicine; FAMILY PHYSICIAN Family Medicine
PROC: 3E0234Z Introduction of Serum, Toxoid and Vaccine into Muscle, Percutaneous Approach (ICD-10-PCS; 2024-10-29)
DX: N41.0 Acute prostatitis (principal); N39.0 Urinary tract infection, site not specified; Z16.23 Resistance to quinolones and fluoroquinolones; N13.8 Other obstructive and reflux uropathy; F32.A Depression, unspecified; I10 Essential (primary) hypertension; K21.9 Gastro-esophageal reflux disease without esophagitis; G62.9 Polyneuropathy, unspecified; N40.1 Benign prostatic hyperplasia with lower urinary tract symptoms; M43.17 Spondylolisthesis, lumbosacral region; J44.9 Chronic obstructive pulmonary disease, unspecified; M16.9 Osteoarthritis of hip, unspecified; B96.5 Pseudomonas (aeruginosa) (mallei) (pseudomallei) as the cause of diseases classified elsewhere; F10.10 Alcohol abuse, uncomplicated; F19.11 Other psychoactive substance abuse, in remission; R33.9 Retention of urine, unspecified; Z87.440 Personal history of urinary (tract) infections; Z87.891 Personal history of nicotine dependence; Z23 Encounter for immunization
CPT/HCPCS: 72100; 73502; 73721; 74176; 80048; 80053; 80306; 80307; 81003; 81015; 82977; 85025; 85027; 86803; 87077; 87086; 90677; 96365; 96375; 97116; 97163; 97167; 97535; 99284; G0009

== ENCOUNTER 2024-12-31 09:27 | Emergency (ER) | payer OTHER, SELFPAY ==
[2024-12-31 09:33] VITALS: BP 123/77
--- NOTE | 2024-12-31 09:49 | ED.GENMED ---
History of Present Illness
General
Chief Complaint: Urinary Symptoms
Time Seen by Provider: 12/31/24 09:39
History of Present Illness
History of Present Illness:
The patient is a 64-year-old male with a history of recurrent urinary tract infections and benign prostatic hyperplasia (BPH). He presents with a chief complaint of burning sensation during urination. He was previously treated with intravenous
antibiotics a couple of months ago and was discharged with an additional two-week course of antibiotics. The patient noted improvement but recently experienced a return of urinary symptoms. He used a test strip, which indicated a positive result for
an infection. The patient denies fever or back pain. He has a known large prostate and expressed a feeling of incomplete bladder emptying, although he perceives he is emptying his bladder. No self-catheterization has been performed, and he has not
undergone any prostate surgeries. Current medications include tamsulosin and finasteride. The patient has an appointment with his urologist scheduled for the following day.
Past History
Past History
ED Past Medical History: Arrthythmia, GERD, HTN, Psychiatric (alcoholism and depression, substance abuse), Other (Pancreatitis) and Other (peripheral neuropathy, BPH)
ED Past Surgical History: None
Social History
Tobacco: Former smoker ( him)
Alcohol: Former
Drug: Marijuana
Personal: Single
Living: with roommate
Employment: Not employed
Family History
Family History: Other (Noncontributory)
Phy Exam
Physical Exam
Physical Exam:
General: Awake, Alert, Oriented X3. No acute distress.
Vitals: unremarkable
Head: Atraumatic
Eyes: Pupils equal, EOMI
Throat: Airway intact, no exudates
Neck: Trachea midline
Lungs: Clear and equal b/l
Heart: Regular rate, no murmurs
Abd: Soft, Nontender, No pulsatile mass
Back: No CVA tenderness to percussion
Neuro: Nonfocal
Skin: Warm, dry, no rash
Extremities: pulses equal b/l, no edema
Course
Orders/Labs/Results
Orders:
Orders
12/31/24 09:48
Urinalysis Reflex To Culture Urgent
Date Specimen was Collected: 12/31/24
Time Specimen was Collected: 09:38
Vital Signs
Initial and Last Documented VS:
Initial Vital Signs
Temp Pulse Resp BP Pulse Ox
98.4 F 80 18 123/77 98
12/31/24 09:33 12/31/24 09:33 12/31/24 09:33 12/31/24 09:33 12/31/24 09:33
Last Documented Vital Signs
Temp Pulse Resp BP Pulse Ox
98.4 F 80 18 112/68 98
12/31/24 09:33 12/31/24 09:33 12/31/24 09:33 12/31/24 11:39 12/31/24 09:33
MDM/Problems Addressed
Differential Diagnosis Includes:
The Differential Diagnosis includes, in no particular order and is not limited to:
1. Urinary tract infection
2. Benign prostatic hyperplasia
3. Prostatitis
4. Urethritis
5. Bladder stones
6. Interstitial cystitis
7. Acute bacterial prostatitis
MDM/Problems Addressed:
Number and Complexity of Problems Addressed:
The patients urinary retention, associated with BPH and recurrent UTIs, was the primary acute concern assessed during the visit. Given the patients negative urine test and ongoing urological evaluation, invasive interventions were deferred.
Data:
Review and analysis of bladder scan results indicating moderate urinary retention (170 cc), and a negative urine test influencing decision-making processes.
Risk:
Urinary retention and known BPH were considered, but given the planned urologist follow-up, hospitalization or immediate invasive intervention was not necessary. The patient�s medications and potential need for future management adjustments were
reviewed.
Chronic conditions affecting care: Other (bph)
*Pulse Oximetry
Patient hypoxic: no
Comment: 98
*Critical Care Note
Total Time (30-74mins, 75-104mins- exclusive of procedures): Not Applicable
ED Attending Note
-
Portions of this chart may have been created with voice recognition software.� Occasional wrong word or��sound alike� substitutions may have occurred due to the inherent limitations of voice recognition software.
Discharge Plan
Departure
Patient Disposition: Home (Routine Discharge)
Date of Disposition: 12/31/24
Time of Disposition: 11:20
Patient with high blood pressure during this ER visit?: No
Condition: Good
Discharge Problem:
Dysuria
Prescriptions:
No Action
Thera-Tabs Tablet
1 tab PO DAILY
losartan 50 mg Tablet
50 mg PO DAILY Qty: 30 1RF
Patient Comments:
pt stopped this medication last month
Rx Instructions:
pt stopped this medication last month
cyclobenzaprine 10 mg tablet
10 mg PO BID PRN (Reason: neck spasm/tightness) Qty: 14 0RF
Rx Instructions:
dc
tamsulosin [Flomax] 0.4 mg capsule
0.4 mg PO DAILY Qty: 14 0RF
Rx Instructions:
Take 1 capsule by mouth daily
methylprednisolone [Medrol (Musa)] 4 mg tablets,dose pack
See Rx Instructions .ROUTE .COMPLEX Qty: 21 0RF
Rx Instructions:
orally per package directions
metformin 500 mg Tablet
500 mg PO DAILY
metoprolol succinate 25 mg Capsule,Sprinkle,Er 24hr
25 mg PO DAILY
finasteride [Proscar] 5 mg Tablet
5 mg DAILY
Patient Comments:
5mg daily
Rx Instructions:
5 mg daily
folic acid 1 mg Tablet
1 mg PO DAILY 30 Days Qty: 30 0RF
oxycodone 5 mg Tablet
5 mg PO Q6HPRN PRN (Reason: moderate pain) 5 Days Qty: 20 0RF
oxycodone 10 mg Tablet
10 mg PO Q6HPRN PRN (Reason: severe pain) 5 Days Qty: 20 0RF
thiamine mononitrate (vit B1) 100 mg Tablet
100 mg PO BID 30 Days Qty: 60 0RF
heparin lock flush (porcine) 10 unit/mL solution
10 unit IV BID PRN (Reason: IV line flush) 10 Days
pregabalin 75 mg Capsule
75 mg PO BID 30 Days Qty: 60 0RF
amlodipine 5 mg Tablet
5 mg PO DAILY 30 Days Qty: 30 0RF
bisacodyl 10 mg suppository
10 mg OK DAILY PRN (Reason: Constipation) 7 Days Qty: 12 0RF
sennosides [senna] 8.8 mg/5 mL syrup
5 ml PO BID 7 Days Qty: 70 0RF
Referrals:
Kristian Clifford MD [Family Provider, Family Practice]
Severiano Juarez MD [Active, Urology]
Activity Restrictions/Additional Instructions:
You came to the emergency room for burning with urination. Your testing here shows a completely normal urinalysis. An ultrasound of your bladder after you urinated shows there is about 170 cc of urine remaining in the bladder which is borderline
for urinary retention. Because you have an appointment with your urologist I would not intervene here in the emergency room but defer to their judgment. Return to the emergency room develop a fever, cannot pass any urine or feel you are getting
worse
Interventions
Interventions:
*Risk Screen - Suicide Last Done: 12/31/24 09:33
*General Assessment Last Done: 12/31/24 09:33
*Neglect/Abuse Screening Last Done: 12/31/24 09:33
*ED- Fall Risk Assessment Last Done: 12/31/24 09:55
*ED COVID-19 Vaccine History Last Done: 12/31/24 09:55
*Nursing Disposition Last Done: 12/31/24 11:40
ED-Male Genitourinary Assessment Last Done: 12/31/24 09:56
Discharge Date and Time
Discharge Date/Time: 12/31/24 12:02
Print Language: [id number]
[2024-12-31 10:23] LABS: Urine Albumin Negative (Neg - Trace); Urine Bilirubin Negative (Negative); Urine Character Clear (Clear); Urine Color Yellow; Urine Glucose Negative (Negative); Urine Ketone Negative (Negative); Urine Leukocyte Negative (Negative); Urine Nitrite Negative (Negative); Urine Occult Blood Negative (Negative); Urine Urobilinogen Negative (Neg - 1+)
[2024-12-31 11:39] VITALS: BP 112/68
== END 2024-12-31 12:02 | disposition home or self-care (01) ==
LOC: EMR 09:27
PROVIDERS: EMERGENCY PHYSICIAN Emergency Medicine; FAMILY PHYSICIAN Family Medicine
DX: N40.1 Benign prostatic hyperplasia with lower urinary tract symptoms (principal); R30.0 Dysuria; Z87.440 Personal history of urinary (tract) infections; Z87.891 Personal history of nicotine dependence
CPT/HCPCS: 99283; 51798; 81003

== ENCOUNTER → 2025-01-20 06:34 | Outpatient (REF) | payer OTHER, SELFPAY | LOC: MRI 06:34 | PROVIDERS: ATTENDING PHYSICIAN Physical Medicine & Rehabilitation; FAMILY PHYSICIAN Family Medicine | DX: M54.16 Radiculopathy, lumbar region (principal) | CPT/HCPCS: 72148 ==

== ENCOUNTER 2025-04-10 13:35 | Emergency (ER) | payer OTHER, SELFPAY ==
[2025-04-10 13:36] VITALS: BP 180/100
[2025-04-10 14:52] LABS: Urine Character Clear (Clear)
--- NOTE | 2025-04-10 14:53 | ED.GENMED ---
History of Present Illness
General
Chief Complaint: Back Pain
Source: patient
Time Seen by Provider: 04/10/25 14:26
History of Present Illness
History of Present Illness:
65-year-old male with past medical history of hypertension, GERD, previous pancreatitis, previous alcohol and substance abuse, chronic back pain presenting to the ER for exacerbation of his chronic back pain stating that since January he has been
having the right sided back pain with numbness along the right side of the hip/pelvic area, believes he exacerbated the symptoms by doing some work on one of his cars 10 days ago, had been taking more of his chronic pain medicine than what was
prescribed to him and was going to run out of the medication, was given a new prescription but states that the pharmacy would not fill it due to it being too early to fill the new prescription for narcotic medication. Patient had an appointment
scheduled with his pain management provider, Dr. Esquivel, tomorrow but decided to come to the ER instead so he canceled his appointment. He denies any new traumas, focal weakness, saddle anesthesia, bowel or urinary incontinence, fevers or
infectious symptoms. Patient did have an MRI here in January which showed canal stenosis with mild cord compression and multiple areas of disc bulge/herniation.
Past History
Past History
ED Past Medical History: Arrthythmia, GERD, HTN, Psychiatric (alcoholism and depression, substance abuse), Other (Pancreatitis) and Other (peripheral neuropathy, BPH)
ED Past Surgical History: None
Social History
Tobacco: Former smoker ( him)
Alcohol: Former
Drug: Marijuana
Personal: Single
Living: with roommate
Employment: Not employed
Family History
Family History: Other (Noncontributory)
Review of Systems
Review of Systems
All Other Systems: ROS reviewed and negative except as documented in HPI and ROS
Phy Exam
Physical Exam
Physical Exam:
GENERAL: Alert , in no apparent distress, ambulatory but is forward flexed at the pelvis and increased pain when attempting to stand straight up
EYE: clear conjunctiva b/l
NECK: Supple
ENT: mmm.
ABDOMEN: Soft, without focal tenderness, no r/g, no cvat
BACK: limited range of motion 2/2 pain, no focal tenderness, no midline bony tenderness, no rashes
NEUROLOGICAL: Alert and oriented, no focal neuro deficits. Patellar deep tendon reflexes intact and equal bilaterally, sensation grossly intact and equal to light touch bilateral lower extremities
SKIN: Warm and dry, skin intact.
MUSCULOSKELETAL: No edema, well perfused. EHL intact bilaterally
PSYCH: Normal and appropriate interaction.
Scores
Heart Failure Risk
Heart Failure Risk Score: Not Applicable
Heart Score for Chest Pain Patients
STEMI patient?: Not applicable
Withdrawal Assessment of Alcohol
Withdrawal Assessment Completed?: Not applicable
Course
Orders/Labs/Results
Orders:
Orders
04/10/25 14:26
Bladder Scan- Treatment ONCE
04/10/25 14:39
Urinalysis Reflex To Culture Urgent
Date Specimen was Collected: 04/10/25
Time Specimen was Collected: 14:38
04/10/25 14:45
Oxycodone [Roxicodone] 10 mg PO NOW STA
Abnormal Lab Results
04/10/25
14:39
Urine Ketones 1+ A
(Negative)
Vital Signs
Initial and Last Documented VS:
Initial Vital Signs
Temp Pulse Resp BP Pulse Ox
98.2 F 89 16 180/100 98
04/10/25 13:36 04/10/25 13:36 04/10/25 13:36 04/10/25 13:36 04/10/25 13:36
Last Documented Vital Signs
Temp Pulse Resp BP Pulse Ox
98.2 F 89 16 180/100 98
04/10/25 13:36 04/10/25 13:36 04/10/25 13:36 04/10/25 13:36 04/10/25 14:53
MDM/Problems Addressed
Differential Diagnosis Includes:
Acute on chronic exacerbation of known spinal stenosis
Worsening disc herniation
Nerve impingement
Cauda equina
Osteomyelitis/discitis
Epidural abscess
Lumbar strain
MDM/Problems Addressed:
65-year-old male with past medical history of chronic back pain presenting to the ER for acute on chronic exacerbation of this believing that doing work on his car 10 days ago likely exacerbated his symptoms. Patient noted that he has been trying
to get a refill of his usual chronic pain medicine but due to taking too much of his prescribed medication the pharmacy would not fill it despite having a new prescription written for him just the other day. He had an appointment with pain
management scheduled for tomorrow morning at 815 but unfortunately canceled this appointment. We did a postvoid residual which showed 220 mL of urine, patient noted that he was having too much pain trying to stand and purposely did not empty his
bladder stating that he felt that he could empty more if he sat on the toilet. No saddle anesthesia on my exam. Urinalysis without any sign of infection. I attempted to contact patient's pain management office and spoke to the office staff who
unfortunately was unable to reschedule the patient for an appointment tomorrow but would be sending Dr. Esquivel a message to see if he would not mind double booking an appointment slot to get the patient in for an appointment. I notified the office
that I would be prescribing the patient a Medrol Dosepak and a short-term prescription for Valium to be used as needed for pain. Patient is stable for discharge home, we discussed symptoms to observe for for return precautions to the ER.
Chronic conditions affecting care: Other (Chronic back pain)
*Pulse Oximetry
SaO2: 98
Oxygen Mode of Delivery: Room air
Patient hypoxic: no
*Critical Care Note
Total Time (30-74mins, 75-104mins- exclusive of procedures): Not Applicable
Data Reviewed
Review of Other/Old Records Reveals: Labs and Radiology Studies
Comment
Comment:
MRI report from January 20, 2025:
IMPRESSION: Changes of degenerative disc disease in the lower thoracic spine with suggestion of cord compression and possibly a degree of central canal stenosis. If there are symptoms referrable to the thoracic spine, consider further evaluation
with dedicated thoracic spine MRI.
Diffuse changes of degenerative disc disease in the lumbar spine with multilevel central canal stenosis, lateral recess stenosis, and foraminal narrowing. Stenosis is contributed to by prominent epidural fat.
Grade 2 spondylolisthesis at L5-S1 with fusion of the disc space which is likely from autofusion. Severe bilateral L5 foraminal narrowing.
See above narrative for detailed findings at each level.
ED Attending Note
-
Portions of this chart may have been created with voice recognition software.� Occasional wrong word or��sound alike� substitutions may have occurred due to the inherent limitations of voice recognition software.
Discharge Plan
Departure
Patient Disposition: Home (Routine Discharge)
Date of Disposition: 04/10/25
Time of Disposition: 14:53
Patient with high blood pressure during this ER visit?: Yes
Discharge Problem:
Dorsalgia
Instructions: Low Back Pain (DC)
Prescriptions:
New
methylprednisolone [Medrol (Musa)] 4 mg tablets,dose pack
4 mg PO DIRECTED Qty: 21 0RF
diazepam [Valium] 5 mg tablet
5 mg PO BID PRN (Reason: muscle spasm) Qty: 8 0RF
No Action
Thera-Tabs Tablet
1 tab PO DAILY
losartan 50 mg Tablet
50 mg PO DAILY Qty: 30 1RF
Patient Comments:
pt stopped this medication last month
Rx Instructions:
pt stopped this medication last month
cyclobenzaprine 10 mg tablet
10 mg PO BID PRN (Reason: neck spasm/tightness) Qty: 14 0RF
Rx Instructions:
dc
tamsulosin [Flomax] 0.4 mg capsule
0.4 mg PO DAILY Qty: 14 0RF
Rx Instructions:
Take 1 capsule by mouth daily
methylprednisolone [Medrol (Musa)] 4 mg tablets,dose pack
See Rx Instructions .ROUTE .COMPLEX Qty: 21 0RF
Rx Instructions:
orally per package directions
metformin 500 mg Tablet
500 mg PO DAILY
metoprolol succinate 25 mg Capsule,Sprinkle,Er 24hr
25 mg PO DAILY
finasteride [Proscar] 5 mg Tablet
5 mg DAILY
Patient Comments:
5mg daily
Rx Instructions:
5 mg daily
folic acid 1 mg Tablet
1 mg PO DAILY 30 Days Qty: 30 0RF
oxycodone 5 mg Tablet
5 mg PO Q6HPRN PRN (Reason: moderate pain) 5 Days Qty: 20 0RF
oxycodone 10 mg Tablet
10 mg PO Q6HPRN PRN (Reason: severe pain) 5 Days Qty: 20 0RF
thiamine mononitrate (vit B1) 100 mg Tablet
100 mg PO BID 30 Days Qty: 60 0RF
heparin lock flush (porcine) 10 unit/mL solution
10 unit IV BID PRN (Reason: IV line flush) 10 Days
pregabalin 75 mg Capsule
75 mg PO BID 30 Days Qty: 60 0RF
amlodipine 5 mg Tablet
5 mg PO DAILY 30 Days Qty: 30 0RF
bisacodyl 10 mg suppository
10 mg [place] DAILY PRN (Reason: Constipation) 7 Days Qty: 12 0RF
sennosides [senna] 8.8 mg/5 mL syrup
5 ml PO BID 7 Days Qty: 70 0RF
Referrals:
Kristian Clifford MD [Family Provider, Family Practice]
Interventions
Interventions:
*Risk Screen - Suicide Last Done: 04/10/25 13:36
*General Assessment Last Done: 04/10/25 13:51
*Neglect/Abuse Screening Last Done: 04/10/25 13:36
*ED- Fall Risk Assessment Last Done: 04/10/25 13:51
*ED COVID-19 Vaccine History Last Done: 04/10/25 13:51
*Nursing Disposition Last Done: 04/10/25 15:17
ED-Musculoskeletal Assessment Last Done: 04/10/25 13:51
Discharge Date and Time
Discharge Date/Time: 04/10/25 15:18
Print Language: BURMESE
[2025-04-10] MEDS: ROXICODONE 10 MG PO (15:02)
== END 2025-04-10 15:18 | disposition home or self-care (01) ==
LOC: EMR 13:35
PROVIDERS: Physician Assistant Medical; EMERGENCY PHYSICIAN Emergency Medicine; FAMILY PHYSICIAN Family Medicine
DX: M54.50 Low back pain, unspecified (principal); G89.29 Other chronic pain; M48.061 Spinal stenosis, lumbar region without neurogenic claudication; I10 Essential (primary) hypertension; Z87.891 Personal history of nicotine dependence; N40.0 Benign prostatic hyperplasia without lower urinary tract symptoms
CPT/HCPCS: 99283; 81003